=== PATIENT | male | born 1960 | race Caucasian/White ===

== ENCOUNTER → 2016-05-17 | Outpatient (CLI) | payer OTHER ==
[2016-05-17 09:18] LABS: ALT 48 U/L (21-72); AST 20 U/L (17-59); Alkaline Phosphatase 95 U/L (38-126); Anion Gap 11 mmol/L; Blood Urea Nitrogen 16 mg/dL (9-20); Calcium 9.4 mg/dL (8.4-10.2); Carbon Dioxide 25 mmol/L (22-30); Chloride 104 mmol/L (98-107); Cholesterol 101 mg/dL (<200); Glucose 159 mg/dL (74-99); HDL Cholesterol 36 mg/dL (40-60); Non-African American GFR(MDRD) >60 (>60 ml/min/1.73 sqM); Sodium 140 mmol/L (137-145); Total Bilirubin 0.5 mg/dL (0.2-1.3); Total Protein 6.8 g/dL (6.3-8.2); Triglycerides 124 mg/dL (<150)
== END | disposition home or self-care (01) ==
LOC: LABWHC1 07:51
PROVIDERS: ATTEND Internal Medicine Interventional Cardiology
DX: E78.2 Mixed hyperlipidemia (principal)
CPT/HCPCS: 36415; 80053; 80061

== ENCOUNTER 2016-09-08 17:38 | Inpatient (IN) | payer OTHER ==
[2016-09-08] MEDS ORDERED: SODIUM CHLORIDE 0.9% 1,000 ML IV STA (17:50)
--- NOTE | 2016-09-08 18:13 | ED ---
Abdominal Pain HPI - General Chief Complaint: Abdominal Pain Stated Complaint: abd pain Time Seen by Provider: 09/08/16 17:50 Source: patient, RN notes reviewed, old records reviewed Mode of arrival: ambulatory Limitations: no limitations - History of Present Illness Initial Comments: Patient was sent for [facility] emergency Department for chief complaint of lower right quadrant abdominal pain for the past 3 days. He reports that the to the CAT scan showed that he had an infarct over his right kidney. Patient states that he's never had any problems with this before. Denies any decreased urination. Patient denies any chest pain or shortness of breath. He reports that he did have a open-heart surgery one year ago. He reports he's had a decreased appetite over the past few days. He did have dental surgery one week ago. He reports no vomiting but feels nauseated. Denies any changes in bowel movements. - Related Data Home Medications Medication Instructions Recorded Confirmed Aspirin EC [Ecotrin] 325 mg PO HS 09/16/15 09/08/16 Carvedilol [Coreg*] 12.5 mg PO BID 09/08/16 09/08/16 Lisinopril [Prinivil] 5 mg PO QAM 09/08/16 09/08/16 Omeprazole 40 mg PO HS 09/08/16 09/08/16 amLODIPine [Norvasc] 5 mg PO QAM 09/08/16 09/08/16 Previous Rx's Medication Instructions Recorded Atorvastatin [Lipitor] 40 mg PO HS #90 tablet 09/21/15 Allergies Allergy/AdvReac Type Severity Reaction Status Date / Time No Known Allergies Allergy Verified 09/08/16 18:25 Review of Systems ROS Statement: Those systems with pertinent positive or pertinent negative responses have been documented in the HPI. ROS Other: All systems not noted in ROS Statement are negative. Past Medical History Past Medical History: Hypertension, Osteoarthritis (OA), Pneumonia Additional Past Medical History / Comment(s): pneumonia 6 weeks ago, "leaky valve" History of Any Multi-Drug Resistant Organisms: None Reported Past Surgical History: Orthopedic Surgery Additional Past Surgical History / Comment(s): hand surg., stomach biopsy Past Anesthesia/Blood Transfusion Reactions: No Reported Reaction Past Psychological History: No Psychological Hx Reported Smoking Status: Current every day smoker Past Alcohol Use History: Occasional Additional Past Alcohol Use History / Comment(s): has smoked since teens Past Drug Use History: Marijuana Additional Drug Use History / Comment(s): occasional use - Past Family History Mother Family Medical History: Diabetes Mellitus Father Family Medical History: Coronary Artery Disease (CAD) Additional Family Medical History / Comment(s): CABG General Exam - General Exam Comments Initial Comments: 55-year-old male. No acute distress. Limitations: no limitations General appearance: alert, in no apparent distress Head exam: Present: atraumatic, normocephalic, normal inspection Eye exam: Present: normal appearance, PERRL, EOMI. Absent: scleral icterus, conjunctival injection, periorbital swelling ENT exam: Present: normal exam, mucous membranes moist Neck exam: Present: normal inspection. Absent: tenderness, meningismus, lymphadenopathy Respiratory exam: Present: normal lung sounds bilaterally. Absent: respiratory distress, wheezes, rales, rhonchi, stridor Cardiovascular Exam: Present: regular rate, normal rhythm, normal heart sounds. Absent: systolic murmur, diastolic murmur, rubs, gallop, clicks GI/Abdominal exam: Present: soft, tenderness (Right lower quadrant and left lower quadrant tenderness.), normal bowel sounds. Absent: distended, guarding, rebound, rigid Extremities exam: Present: normal inspection, full ROM, normal capillary refill. Absent: tenderness, pedal edema, joint swelling, calf tenderness Back exam: Present: normal inspection Neurological exam: Present: alert, oriented X3, CN II-XII intact Psychiatric exam: Present: normal affect, normal mood Skin exam: Present: warm, dry, intact, normal color. Absent: rash Course Vital Signs 09/08/16 09/08/16 17:43 19:35 Temperature 98.4 F 100.5 F H Pulse Rate 65 62 Respiratory 20 18 Rate Blood Pressure 182/90 173/93 O2 Sat by Pulse 98 99 Oximetry Medical Decision Making - Medical Decision Making This is a 55-year-old male transferred from [facility] emergency Department with chief complaint of a right lower quadrant pain for the past 3 days. Patient received a CT with contrast showed evidence of a wedge-shaped enhancing defect within the right kidney posterolaterally and thought to represent infarct. No definite intrinsic disease as demonstrated within the right renal artery apart for minimal calcific plaque. About source is most likely. Patient was sent here for further workup. Patient denies any chest pain shortness of breath. He reports he does still have the right lower quadrant pain but is occasionally will go to left lower quadrant. Patient does arrive with a mild fever. Lab work was obtained. Mild leukocytosis 14.5. Patient will be started on Unasyn. EKGs were performed shows no evidence of any atrial fibrillation. Patient was admitted with cardiology consult. Patient agrees to this. - Lab Data Result diagrams: 09/08/16 18:04 09/08/16 18:04 Lab Results 09/08/16 09/08/16 09/08/16 Range/Units 18:04 18:04 18:04 WBC 14.6 H (3.8-10.6) k/uL RBC 5.40 (4.30-5.90) m/uL Hgb 17.0 (13.0-17.5) gm/dL Hct 48.2 (39.0-53.0) % MCV 89.3 (80.0-100.0) fL MCH 31.4 (25.0-35.0) pg MCHC 35.2 (31.0-37.0) g/dL RDW 13.4 (11.5-15.5) % Plt Count 192 (150-450) k/uL Neutrophils % 71 % Lymphocytes % 18 % Monocytes % 7 % Eosinophils % 2 % Basophils % 1 % Neutrophils # 10.3 H (1.3-7.7) k/uL Lymphocytes # 2.7 (1.0-4.8) k/uL Monocytes # 1.1 H (0-1.0) k/uL Eosinophils # 0.3 (0-0.7) k/uL Basophils # 0.1 (0-0.2) k/uL Sodium 139 (137-145) mmol/L Potassium 4.1 (3.5-5.1) mmol/L Chloride 100 (98-107) mmol/L Carbon Dioxide 26 (22-30) mmol/L Anion Gap 13 mmol/L BUN 13 (9-20) mg/dL Creatinine 1.10 (0.66-1.25) mg/dL Est GFR (MDRD) Af Amer >60 (>60 ml/min/1.73 sqM) Est GFR (MDRD) Non-Af >60 (>60 ml/min/1.73 sqM) Glucose 101 H (74-99) mg/dL Calcium 9.2 (8.4-10.2) mg/dL Total Bilirubin 1.2 (0.2-1.3) mg/dL AST 32 (17-59) U/L ALT 38 (21-72) U/L Alkaline Phosphatase 100 (38-126) U/L Total Creatine Kinase (55-170) U/L CK-MB (CK-2) (0.0-2.4) ng/mL CK-MB (CK-2) Rel Index Troponin I (0.000-0.034) ng/mL Total Protein 7.4 (6.3-8.2) g/dL Albumin 4.1 (3.5-5.0) g/dL Amylase 58 (30-110) U/L Lipase 66 (23-300) U/L Urine Color Yellow Urine Appearance Clear (Clear) Urine pH 7.0 (5.0-8.0) Ur Specific [place] 1.050 H (1.001-1.035) Urine Protein 1+ H (Negative) Urine Glucose (UA) Negative (Negative) Urine Ketones Negative (Negative) Urine Blood Negative (Negative) Urine Nitrite Negative (Negative) Urine Bilirubin Negative (Negative) Urine Urobilinogen 3.0 (<2.0) mg/dL Ur Leukocyte Esterase Negative (Negative) Urine RBC 1 (0-5) /hpf 09/08/16 Range/Units 18:04 WBC (3.8-10.6) k/uL RBC (4.30-5.90) m/uL Hgb (13.0-17.5) gm/dL Hct (39.0-53.0) % MCV (80.0-100.0) fL MCH (25.0-35.0) pg MCHC (31.0-37.0) g/dL RDW (11.5-15.5) % Plt Count (150-450) k/uL Neutrophils % % Lymphocytes % % Monocytes % % Eosinophils % % Basophils % % Neutrophils # (1.3-7.7) k/uL Lymphocytes # (1.0-4.8) k/uL Monocytes # (0-1.0) k/uL Eosinophils # (0-0.7) k/uL Basophils # (0-0.2) k/uL Sodium (137-145) mmol/L Potassium (3.5-5.1) mmol/L Chloride (98-107) mmol/L Carbon Dioxide (22-30) mmol/L Anion Gap mmol/L BUN (9-20) mg/dL Creatinine (0.66-1.25) mg/dL Est GFR (MDRD) Af Amer (>60 ml/min/1.73 sqM) Est GFR (MDRD) Non-Af (>60 ml/min/1.73 sqM) Glucose (74-99) mg/dL Calcium (8.4-10.2) mg/dL Total Bilirubin (0.2-1.3) mg/dL AST (17-59) U/L ALT (21-72) U/L Alkaline Phosphatase (38-126) U/L Total Creatine Kinase 45 L (55-170) U/L CK-MB (CK-2) 0.2 (0.0-2.4) ng/mL CK-MB (CK-2) Rel Index 0.4 Troponin I 0.015 (0.000-0.034) ng/mL Total Protein (6.3-8.2) g/dL Albumin (3.5-5.0) g/dL Amylase (30-110) U/L Lipase (23-300) U/L Urine Color Urine Appearance (Clear) Urine pH (5.0-8.0) Ur Specific [place] (1.001-1.035) Urine Protein (Negative) Urine Glucose (UA) (Negative) Urine Ketones (Negative) Urine Blood (Negative) Urine Nitrite (Negative) Urine Bilirubin (Negative) Urine Urobilinogen (<2.0) mg/dL Ur Leukocyte Esterase (Negative) Urine RBC (0-5) /hpf 09/08/16 18:51 EKG shows a sinus rhythm. Possible left arterial enlargement. Abnormality considering lateral ischemia. Ventricular rate 61 beats minute. IA 150 form of sinus. Dressing 108 ms. QT QTc is 416/418. Atrial or ventricular arrhythmias. - Radiology Data Radiology results: report reviewed Patient's CT shows wedge-shaped enhancing defect within the right kidney posterior laterally thought to represent infarct, no definite intrinsic disease demonstrated within the right renal artery part from minimal calcific plaque. Embolic source is most likely. A cardiac source of embolization would have to be excluded and cardiology consult is suggested. Less likely abnormality may represent a focal infection and clinical correlation with respect to UTIs recommended. Bilateral external iliac artery occlusions with reconstruction of the common form arteries through the epigastrium started once iliac. Prostatic enlargement with central constipation, small bilateral inguinal hernias, the appendix appears normal. Disposition Clinical Impression: Renal infarct, Leukocytosis, CAD (coronary artery disease), Hyperlipemia, HTN ( hypertension) Disposition: ADMITTED IP TO THIS HOSP Condition: Stable Time of Disposition: 19:33
[2016-09-08 18:14] LABS: Basophils # (A) 0.1 k/uL (0-0.2); Basophils % (A) 1 %; CH 32.1; CHCM 36.1; Eosinophils # (A) 0.3 k/uL (0-0.7); Eosinophils % (A) 2 %; HCT 48.2 % (39.0-53.0); HDW 2.62; Luc # (Auto) 0.21; Luc % (Auto) 1; Lymphocytes # (A) 2.7 k/uL (1.0-4.8); Lymphocytes % (A) 18 %; MCH 31.4 pg (25.0-35.0); MCHC 35.2 g/dL (31.0-37.0); MCV 89.3 fL (80.0-100.0); Mean Platelet Volume 7.2; Monocytes # (A) 1.1 k/uL (0-1.0); Monocytes % (A) 7 %; Neutrophils # (A) 10.3 k/uL (1.3-7.7); Neutrophils % (A) 71 %; RDW 13.4 % (11.5-15.5); WBC 14.6 k/uL (3.8-10.6); WBC (Perox) 14.21
[2016-09-08 18:36] LABS: ALT 38 U/L (21-72); AST 32 U/L (17-59); Alkaline Phosphatase 100 U/L (38-126); Amylase 58 U/L (30-110); Anion Gap 13 mmol/L; Blood Urea Nitrogen 13 mg/dL (9-20); Calcium 9.2 mg/dL (8.4-10.2); Carbon Dioxide 26 mmol/L (22-30); Chloride 100 mmol/L (98-107); Glucose 101 mg/dL (74-99); Non-African American GFR(MDRD) >60 (>60 ml/min/1.73 sqM); Potassium 4.1 mmol/L (3.5-5.1); Sodium 139 mmol/L (137-145); Total Bilirubin 1.2 mg/dL (0.2-1.3); Total Protein 7.4 g/dL (6.3-8.2)
[2016-09-08 18:38] LABS: Appearance,Urine Clear (Clear); Bilirubin,Urine Negative (Negative); Glucose,Urine (UA) Negative (Negative); Ketones,Urine Negative (Negative); Leukocyte Esterase,Urine Negative (Negative); Nitrite,Urine Negative (Negative); Particle Count 798; Protein,Urine 1+ (Negative); RBC,Urine 1 /hpf (0-5); UA Billing (MACRO vs. MICRO) MICRO
[2016-09-08 18:49] LABS: Creatine Kinase MB 0.2 ng/mL (0.0-2.4); Troponin I 0.015 ng/mL (0.000-0.034)
[2016-09-08] MEDS ORDERED: MORPHINE SULFATE 4 MG/ML SYRINGE IV PRN (19:33)
[2016-09-08] MEDS ORDERED: ACETAMINOPHEN TAB 325 MG TAB PO PRN (19:33)
[2016-09-08] MEDS ORDERED: HYDROcodone/APAP 5-325MG 1 EACH TAB PO PRN (19:33)
[2016-09-08] MEDS ORDERED: NALOXONE 0.4 MG/ML 1 ML VIAL IV PRN (19:33)
[2016-09-08] MEDS ORDERED: ONDANSETRON 4 MG/2 ML VIAL IVP PRN (19:33)
[2016-09-08] MEDS ORDERED: ACETAMINOPHEN TAB 500 MG TAB PO STA (19:42)
[2016-09-08] MEDS ORDERED: AMPICILLIN-SULBACTAM 3 GM in SODIUM CHLORIDE 0.9% 100 ML IVPB STA (19:43)
[2016-09-08] MEDS ORDERED: AMPICILLIN-SULBACTAM 3 GM in SODIUM CHLORIDE 0.9% 50 ML IVPB SCH (19:45)
[2016-09-08] MEDS: SODIUM CHLORIDE 0.9% 1,000 ML IV SCH (20:56)
[2016-09-08 22:55] VITALS: BMI 34.9
[2016-09-08] MEDS: ASPIRIN 325 MG TAB PO SCH (23:57)
[2016-09-08] MEDS: ATORVASTATIN 40 MG TAB PO SCH (23:58)
[2016-09-08] MEDS: PANTOPRAZOLE 40 MG TABLET PO SCH (23:58)
[2016-09-08] MEDS: CARVEDILOL 12.5 MG TAB PO SCH (23:58)
[2016-09-09] MEDS: AMPICILLIN-SULBACTAM 3 GM in SODIUM CHLORIDE 0.9% 100 ML IVPB SCH ×4 (02:32→20:43)
[2016-09-09] MEDS: SODIUM CHLORIDE 0.9% 1,000 ML IV SCH ×3 (02:35→21:48)
[2016-09-09] MEDS: CARVEDILOL 12.5 MG TAB PO SCH ×2 (08:50→20:43)
[2016-09-09] MEDS: LISINOPRIL 5 MG TAB PO SCH (08:50)
[2016-09-09] MEDS: amLODIPine 5 MG TAB PO SCH (12:11)
--- NOTE | 2016-09-09 12:15 | CONS ---
DATE OF CONSULTATION: Mr. Dyson is a 55-year-old gentleman who is seen for cardiac evaluation. This patient's previous medical records reviewed. Patient went to [facility] Emergency Department because of complaint of the right lower quadrant abdominal pain which has been going on for 3 days. The pain is kind of persistent. He did not have any significant nausea or vomiting. He denied any fever or chills at home, but the patient did have some fever last night. Patient denies any hematuria. Patient had a CT of the abdomen and pelvis done at [facility] which showed a possible infarct of the right kidney. Patient denies any past history of atrial fibrillation. He has a history of coronary artery bypass surgery at one year ago. Patient had a significantly impaired left ventricular systolic function at that time for cardiac catheterization, however, subsequently after the open heart surgery the left ventricular systolic function has almost normalized and has been doing fairly well. He denies any exertional shortness of breath, orthopnea, PND, or denies any history of angina. Patient denies any history of valvular heart disease. Home medications include aspirin, Coreg, Prinivil, omeprazole and Norvasc. Review of systems is otherwise unremarkable. Past medical history includes history of orthopedic surgery, history of hand surgery. Patient also had upper GI endoscopy and had a biopsy of the stomach done, the details of which are not available. He was treated for pneumonia about 6 weeks ago. SOCIAL HISTORY: Patient is currently every day smoker and there is a past drug history of marijuana use. Physical examination at present reveals a 55-year-old gentleman who does not appear to be in any acute distress. Patient had a temperature of 100.5. Initial blood pressure in the emergency room was 173/93 mmHg. Blood pressure now is 129/68 mmHg. Head/ENT examination is negative. Neck is supple. There is no increase in jugular venous pressure. Both the carotid pulses are felt. There is no bruit. Chest is symmetrical. HEART: The PMI is not felt. First and second heart sounds are normal. There is no evidence of any significant murmur. Lungs are clinically clear to auscultation and percussion. Abdomen is soft. There is a right lower quadrant tenderness present. Bowel sounds are normal. EXTREMITIES: Peripheral pulsations are 2+. Patient's white count was 11.8 yesterday and it is 4.6 today. Electrolytes are normal. Patient's troponin was 0.015. Urinalysis is negative for any blood in the urine. Patient's echocardiogram reviewed. It reveals overall normal left ventricular systolic function with a small area of basal inferior septal and basal inferior wall hypokinesia. The CT scan at [facility] reveals right kidney infarct. FINAL ( ): 1. This patient has evidence of right kidney infarct, exact etiology undetermined. Patient is status post coronary artery bypass surgery. At present patient's left ventricular systolic function is normal. There is only small area of inferobasal hypokinesia. There is no definite evidence of any thrombus at the left ventricular apex. 2. Patient does have a low grade fever and elevated white count, which needs to be further evaluated. We will order the blood cultures. Discussed this patient's condition with Dr. Nuñez. We will have a surgical consultation to rule out any other causes of abdominal pain. I am not sure whether this kidney infarct is recent or old one. Patient would be evaluated with troponin to rule out any cardiac source of emboli. Thank you very much for letting me participate in the care of this nice gentleman.
[2016-09-09] MEDS ORDERED: ALPRAZolam 0.25 MG TAB PO PRN (15:07)
[2016-09-09] MEDS ORDERED: TEMAZEPAM 15 MG CAP PO PRN (15:07)
--- NOTE | 2016-09-09 15:43 | ECHOF ---
Referral Reason:lv function MEASUREMENTS -------- HEIGHT: 175.3 cm WEIGHT: 107.1 kg BP: 128/68 RVIDd: 3.3 cm (< 3.3) IVSd: 1.5 cm (0.6 - 1.1) LVIDd: 5.1 cm (3.9 - 5.3) LVPWd: 1.5 cm (0.6 - 1.1) IVSs: 1.6 cm LVIDs: 3.6 cm LVPWs: 2.0 cm LA Diam: 4.0 cm (2.7 - 3.8) LAESV Index (A-L): 45.82 ml/m Ao Diam: 3.3 cm (2.0 - 3.7) AV Cusp: 2.3 cm (1.5 - 2.6) MV EXCURSION: 21.866 mm (> 18.000) MV EF SLOPE: 79 mm/s (70 - 150) EPSS: 1.2 cm MV E Joel: 0.93 m/s MV DecT: 180 ms MV A Joel: 0.49 m/s MV E/A Ratio: 1.92 RAP: 5.00 mmHg RVSP: 40.32 mmHg FINDINGS -------- Sinus rhythm. This was a technically difficult study with suboptimal views. The left ventricular size is normal. There is moderate concentric left ventricular hypertrophy. Overall left ventricular systolic function is low-normal with, an EF between 50 - 55 %. Basal inferior LV wall motion is hypokinetic. Basal inferoseptal LV wall motion is hypokinetic. The right ventricle is mildly enlarged. LA is severely dilated >40 ml/m2 The right atrium is normal in size. 1.5mg of Definity was utilized for enhancement of images There is mild aortic valve sclerosis. Mild mitral annular calcification present. There is trace mitral regurgitation. Mild tricuspid regurgitation present. There is mild pulmonary hypertension. The right ventricular systolic pressure, as measured by Doppler, is 40.32mmHg. Trace/mild (physiologic) pulmonic regurgitation. The aortic root size is normal. The inferior vena cava is mildly dilated. The pericardium is normal. CONCLUSIONS -------- 1. Sinus rhythm. 2. 1.5mg of Definity was utilized for enhancement of images 3. There is mild aortic valve sclerosis. 4. Mild mitral annular calcification present. 5. There is trace mitral regurgitation. 6. Mild tricuspid regurgitation present. 7. There is mild pulmonary hypertension. 8. The right ventricular systolic pressure, as measured by Doppler, is 40.32mmHg. 9. Trace/mild (physiologic) pulmonic regurgitation. 10. The aortic root size is normal. 11. The inferior vena cava is mildly dilated. 12. This was a technically difficult study with suboptimal views. 13. The pericardium is normal. 14. The left ventricular size is normal. 15. There is moderate concentric left ventricular hypertrophy. 16. Overall left ventricular systolic function is low-normal with, an EF between 50 - 55 %. 17. Basal inferior LV wall motion is hypokinetic. 18. Basal inferoseptal LV wall motion is hypokinetic. 19. The right ventricle is mildly enlarged. 20. LA is severely dilated >40 ml/m2 ALLERGIST/MD: Mana Coughlin RDCS
--- NOTE | 2016-09-09 17:01 | HP ---
DATE OF ADMISSION: 09/08/2016 CHIEF COMPLAINT: Abdominal pain. HISTORY OF PRESENT ILLNESS: This 55-year-old gentleman with a past medical history of multiple medical problems, including CAD, CABG in 2016, history of hypertension, history of DJD, history of pneumonia, history of leaky valve, history of nicotine dependence, is being followed by Dr. Sebastian Naidu in the outpatient setting. He apparently presented to [facility] with abdominal pain. The patient was noted to have a renal infarct on the right side, and the patient was subsequently transferred to [facility] for further evaluation and treatment. There is no history of any fever, rigor or chills, no history of headache. Patient had a diminished appetite. Otherwise, no history of diarrhea. No history of any hematuria. No hematochezia, melena. Of note, the patient did have multiple dental extractions a few weeks ago. Patient also had EGD and colonoscopy, and a polypectomy was also done about [address] Salvador in [facility]. There is no history of any fever, rigor or chills, no history of headache, loss of consciousness, seizures. PAST MEDICAL HISTORY: 1. Hypertension. 2. DJD. 3. History of pneumonia 6 weeks ago. 4. History of THC. HOME MEDICATIONS: 1. Prinivil 5 mg each morning. 2. Norvasc 5 mg each morning. 3. Omeprazole 40 mg at bedtime. 4. Coreg 12.5 mg b.i.d. 5. Lipitor 40 mg at bedtime. 6. Ecotrin 81 mg at bedtime. ALLERGIES: NONE. FAMILY HISTORY: History of diabetes mellitus, CAD, CABG in the family. SOCIAL HISTORY: History of smoking. No history of alcohol intake. REVIEW OF SYSTEMS: ENT: No diminishing hearing. No diminished vision. CARDIOVASCULAR: No angina, palpitations. RESPIRATORY SYSTEM: As mentioned earlier. GI: No nausea or vomiting : No dysuria. NERVOUS SYSTEM: No numbness, weakness. ALLERGY/IMMUNOLOGY: No asthma, hayfever. MUSCULOSKELETAL: As mentioned earlier. HEMATOLOGY/ONCOLOGY: No history of anemia. ENDOCRINE: As mentioned earlier. CONSTITUTIONAL: As mentioned earlier. DERMATOLOGY: Negative. RHEUMATOLOGY: Negative. PSYCHIATRY: As mentioned earlier. PHYSICAL EXAMINATION: Patient is alert and oriented x3. Pulse is 58, blood pressure 120/74, respiration 18, temperature 100.2, pulse ox 96% on room air. HEENT: Conjunctivae normal. NECK: No jugular venous distention. CARDIOVASCULAR SYSTEM: S1, S2 muffled. RESPIRATORY SYSTEM: Breath sounds diminished at the bases. A few rhonchi. No crackles. ABDOMEN: Soft. Mild diffuse discomfort on the right lower quadrant. No guarding. No rigidity. No mass palpable. LEGS: No edema. No swelling. NERVOUS SYSTEM: Higher functions as mentioned earlier. Moves all 4 limbs. No focal motor or sensory deficit. LYMPHATICS: No lymph node palpable in neck, axillae or groin. SKIN: No ulcer, rash, bleeding. LABS: WBC 14.6, hemoglobin 17. ASSESSMENT: 1. Abdominal pain and fever for evaluation. 2. Possible right renal infarct. 3. Increased white count. 4. History of recent coronary artery disease, coronary artery bypass grafting. 5. Hypertension, essential. 6. History of degenerative joint disease. 7. History of pneumonia. 8. History of recent dental extractions. 9. History of esophagogastroduodenoscopy, colonoscopy with polypectomy. 10. History of nicotine dependence. 11. History of tetrahydrocannabinol. 12. History of coronary artery disease. 13. FULL CODE. RECOMMENDATIONS AND DISCUSSION: In this 55-year-old gentleman who presented with multiple complex medical issues, we will monitor the patient closely, continue the current medication, continue with symptomatic treatment. Otherwise, patient has been started on empiric antibiotics at this time. I would recommend infectious disease evaluation as well as surgical evaluation. Cardiology also has seen the patient. TEA is a consideration. See orders for further details. Prognosis is guarded. Further recommendations to follow. Blood cultures will be obtained. Home medications will be continued. Discussed with the patient and family, who understand and agree. A copy of this dictation is being forwarded to Dr. Sebastian Naidu, who is the primary physician. DESTINI
[2016-09-09] MEDS: NICOTINE 14MG/24HR PATCH TRANSDERM SCH (18:39)
[2016-09-09] MEDS: ATORVASTATIN 40 MG TAB PO SCH (20:43)
[2016-09-09] MEDS: PANTOPRAZOLE 40 MG TABLET PO SCH (21:48)
[2016-09-09] MEDS: ASPIRIN 325 MG TAB PO SCH (21:48)
--- NOTE | 2016-09-09 22:13 | P.PN ---
Progress Note - Text Patient seen and evaluated. Patient know to me from recent upper and lower endoscopy at [place] on 08/08/16. I reviewed results of this scopes consistent with multiple tubular adenomas and Cooper's esophagus. He is complaining of right lower quadrant pain since yesterday. Currently his is undergoing cardiology work-up for renal infarct. Agree with cardiology work-up. Will upload CT from [place] for further review and will follow.
--- NOTE | 2016-09-09 22:39 | CONS ---
DATE OF CONSULTATION: 09/09/2016 REASON FOR CONSULTATION: Renal infarct, fever and question of infection. HISTORY OF PRESENT ILLNESS: The patient is a 55-year-old male who started having abdominal pain in the right lower abdominal area for about 2 to 3 days. The patient denies any history of any trauma. Pain described to be dull aching pain, 5 to 6 out of 10 and no radiation. The patient did have some nausea, but no vomiting. He denies any significant voiding or frequency of urine. No hematuria. Denies having any diarrhea or constipation . The patient did present to [facility], where the patient was evaluated by the ER physician. He did have slightly evaluated white count and a CT of the abdomen and pelvis did show evidence of right renal infarct for which the patient has been transferred to [facility] for further evaluation. Patient has been evaluated by Cardiology and in view of the fevers and elevated white count requested for the ID evaluation. The patient did mention that he did have a fever of 100.2 yesterday. The fever today on the floor of 100.3. REVIEW OF SYSTEMS: CONSTITUTIONAL: Positive for weakness and fever. EYES: No complaint. ENT: No complaint. RESPIRATORY: No complaint. CARDIOVASCULAR: No complaint. PULMONARY: Clear anteriorly, no complaint. GASTROINTESTINAL: As per HPI. MUSCULOSKELETAL: No complaint. INEGUMENTARY: No complaint. PSYCHOLOGIC: No complaint. ENDOCRINE: No complaint. NEUROLOGIC: No complaint. Past medical history is significant for hypertension, degenerative joint disease, pneumonia, coronary artery disease. PAST SURGICAL HISTORY: Hand surgery. SOCIAL HISTORY: The patient is a current every day smoker. Occasional marijuana use and occasionally drinks. FAMILY HISTORY: Mother had history of diabetes. Father with history coronary artery disease. ALLERGIES: No known drug allergies. MEDICATIONS: Currently include the patient is on: 1. Tylenol. 2. [place]. 3. Xanax. 4. Norvasc. 5. Unasyn 3 g every 6 hours. 6. Aspirin. 7. Lipitor. 8. Coreg. 9. Zestril. 10. Morphine sulfate. 11. Narcan. 12. Nicotine patch. 13. Zofran. 14. Protonix. 15. Restoril. On examination, blood pressure is 129/68 with a pulse of 50, temperature 98.4. He is 96% on room air. General description is a middle-aged male lying in bed in no distress. No tachypnea or accessory muscle of respiration use. HEENT: No pallor or scleral icterus. Oral mucosa dry. NECK: Trachea central. There is no thyromegaly. LUNGS: Unlabored breathing. Clear to auscultation anteriorly. HEART: S1, S2. Regular rate and rhythm. ABDOMEN: Soft. No tenderness. Mild CVA tenderness. No guarding, rigidity. No organomegaly. EXTREMITIES: No edema of feet. SKIN: No rash or mass palpable. NEUROLOGICAL: The patient is awake, alert, oriented x3. Mood and affect normal. LABS: Hemoglobin is 17, white count of 14.6. BUN of 13, creatinine 1.1. Electrolytes have been normal. CK was 45. UA itself is negative. CT from [place] with evidence of right renal infarct. DIAGNOSTIC IMPRESSION AND PLAN: The patient with right-sided abdominal pain in a patient with no hematuria. Did have a low-grade fever, elevated white count with the CT at [place] suspicious for a infarct of the right kidney with no mention of any abscess formation . Patient's appendix was reported to be negative. Patient does have a low-grade fever, elevated white count, which could be related to adrenal infarct and not suggestive of any infectious etiology, though cannot be really excluded. Patient did have his teeth removed about 2 weeks ago. If the blood cultures come back positive, an echocardiogram or TEA may be needed for further workup. PLAN: 1. Blood culture has been repeated x2. 2. Continue the patient's antibiotic Unasyn while waiting for the culture to finalize. 3. Obtain ultrasound of his kidneys. 4. Will follow up on the clinical condition and cultures, further adjust the medication as needed. Thank you for this consultation. I will follow this patient along with you. DESTINI
[2016-09-10] MEDS: AMPICILLIN-SULBACTAM 3 GM in SODIUM CHLORIDE 0.9% 100 ML IVPB SCH ×4 (03:01→21:24)
[2016-09-10 07:18] LABS: Basophils % (A) 0 %; CH 32.2; CHCM 35.4; Eosinophils # (A) 0.3 k/uL (0-0.7); Eosinophils % (A) 3 %; HCT 39.9 % (39.0-53.0); HDW 2.71; HGB 14.1 gm/dL (13.0-17.5); Luc % (Auto) 2; Lymphocytes % (A) 23 %; MCH 32.4 pg (25.0-35.0); MCHC 35.5 g/dL (31.0-37.0); MCV 91.3 fL (80.0-100.0); Mean Platelet Volume 7.6; Monocytes # (A) 0.7 k/uL (0-1.0); Monocytes % (A) 8 %; Neutrophils # (A) 5.5 k/uL (1.3-7.7); Neutrophils % (A) 64 %; RBC 4.36 m/uL (4.30-5.90); RDW 13.4 % (11.5-15.5); WBC 8.6 k/uL (3.8-10.6); WBC (Perox) 8.44
[2016-09-10 07:46] LABS: Anion Gap 9 mmol/L; Blood Urea Nitrogen 11 mg/dL (9-20); Calcium 8.2 mg/dL (8.4-10.2); Carbon Dioxide 24 mmol/L (22-30); Chloride 106 mmol/L (98-107); Glucose 110 mg/dL (74-99); Non-African American GFR(MDRD) >60 (>60 ml/min/1.73 sqM); Potassium 4.2 mmol/L (3.5-5.1); Sodium 139 mmol/L (137-145)
[2016-09-10] MEDS ORDERED: MIDAZOLAM 2 MG/2 ML VIAL ONE (08:13)
[2016-09-10] MEDS ORDERED: fentaNYL (PF) 50 MCG/ML 2 ML AMP ONE (08:13)
[2016-09-10] MEDS ORDERED: IV FLUID CONTINUATION 200 ML IV ONE (08:19)
[2016-09-10] MEDS ORDERED: BENZOCAINE SPRAY 100 APPLIC/CAN MUCOUS MEM ONE (08:26)
[2016-09-10] MEDS ORDERED: MIDAZOLAM 2 MG/2 ML VIAL IV ONE ×3 (08:38→08:43)
[2016-09-10] MEDS ORDERED: fentaNYL (PF) 50 MCG/ML 2 ML AMP IV ONE (08:38)
--- NOTE | 2016-09-10 08:41 | US ---
EXAMINATION TYPE: US abd limited kidneys/bladder DATE OF EXAM: 09/10/2016 COMPARISON: NONE CLINICAL HISTORY: abd pain , ? renal infarct vs abscess. RLQ pain x 5 days, nausea, right renal infar ct visualized on CT ABD done at [facility] 09/08/16 EXAM MEASUREMENTS: Liver Length: 18.3 cm Gallbladder Wall: 0.7 cm CBD: 0.3 cm Right Kidney: 11.2 x 6.7 x 5.7 cm Left Kidney: 11.9 x 6.5 x 5.2 cm Pancreas: obscured by overlying bowel content Liver: enlarged, heterogeneous in appearance Gallbladder: thickened GB wall, negative Crump's sign CBD: appears wnl Right Kidney: appears heterogeneous anterior mid, right renal vein and right renal artery appear pat ent Left Kidney: no evidence of hydronephrosis or mass Bladder: appears wnl Bilateral Jets Seen yes Grayscale, color Doppler imaging performed of the right renal vein. Kidneys show normal cortical medu llary differentiation. Urinary bladder shows bilateral ureteral jets. IMPRESSION: Suspect a thickened gallbladder wall, correlate clinically to exclude cholecystitis.
[2016-09-10] MEDS ORDERED: SODIUM CHLORIDE 0.9% 500 ML IV ONE (08:53)
[2016-09-10] MEDS: SODIUM CHLORIDE 0.9% 1,000 ML IV SCH ×2 (10:11→14:42)
[2016-09-10] MEDS: LISINOPRIL 5 MG TAB PO SCH (10:31)
[2016-09-10] MEDS: CARVEDILOL 12.5 MG TAB PO SCH ×2 (10:32→21:23)
[2016-09-10] MEDS: NICOTINE 14MG/24HR PATCH TRANSDERM SCH (10:32)
[2016-09-10] MEDS: amLODIPine 5 MG TAB PO SCH (10:32)
--- NOTE | 2016-09-10 10:32 | ECHOT ---
DATE OF SERVICE: INDICATIONS: Evaluation of intracardiac thrombus. PROCEDURE: After explaining the procedure to the patient as well as the risks and complications, his blood pressure, heart rate, O2 saturation was monitored. The throat was sprayed with Cetacaine. He received 3 mg of intravenous Versed and 50 mcg intravenous fentanyl. After obtaining moderate conscious sedated state, the probe was introduced into the esophagus without difficulty. Images were obtained. Following that, the probe was removed. There was no immediate complication. FINDINGS: Left atrial size is dilated. Left atrial appendage os normal. Left ventricle size is normal. There is mild inferior wall hypokinesis, estimated ejection fraction 50%. The aortic valve, mitral valve and tricuspid valve appear to be normal. Descending thoracic aorta revealed no evidence of significant atherosclerotic changes. Contrast bubble study revealed no evidence of shunting across the interatrial septum with Valsalva maneuver. No pericardial effusion was noted. Doppler pulse wave and color Doppler obtained revealed mild to moderate mitral with mild tricuspid regurgitation and there was no shunting by color Doppler study. CONCLUSION: 1. Mild dilated left atrium. 2. Normal left ventricular size with mild impaired left ventricular systolic function. 3. Mild to moderate mitral with mild tricuspid regurgitation. 4. No evidence of intracardiac thrombus. 5. No evidence of shunting across the interatrial septum. 6. No pericardial effusion.
--- NOTE | 2016-09-10 13:42 | P.GSCN ---
History of Present Illness Consult date: 09/09/16 Reason for Consult: Abdominal pain Requesting physician: Chaitanya Sun History of present illness: The patient is a 55-year-old gentleman well-known to me who had an upper endoscopy including lower endoscopy in 08/08/2016 [facility]. Incidentally he reports in the last 24-48 hours he had developed right sided particular right lower abdominal pain. He went to [place] emergency room where a CT of the abdomen and pelvis demonstrated a right renal infarct. He denies any genitourinary symptoms. Separately he reports that his pain had mildly improved since admission of the right lower abdomen. Secondary to his diagnosis of renal infarct, cardiology assessment is pending at this time. He had yet to follow-up in the office regarding his recent upper and lower endoscopy studies. His daughter is at bedside. Review of Systems CONSTITUTIONAL: Denies any fever or chills. Denies recent weight loss or weight gain. HEENT: Denies any trouble with vision, hearing or nosebleeds. No difficulty swallowing. LYMPHATIC: The patient denies any lumps and bumps around the neck. ENDOCRINE: Denies any thyroid disorders. Denies any blood sugar glucose intolerance. RESPIRATORY: Past history of pneumonia. Denies any troubles with breathing or dyspnea on exertion. CARDIOVASCULAR: Has hypertension including history of heart murmur. GASTROINTESTINAL: Has Cooper's esophagus. Has multiple colon polyps and diverticulosis upon recent upper endoscopy and lower endoscopy . Denies any fatty food intolerance. GENITOURINARY: Denies any blood in urine or increased urinary frequency. MUSCULOSKELETAL: Has back pain, stiffness, joint arthritis. NEUROLOGIC: Denies any numbness or tingling along the distal extremities. No seizure disorders or headaches. PSYCHIATRIC: Denies depression or suidical ideation. HEMATOLOGIC: Denies any abnormal bleeding or bruising. Past Medical History Past Medical History: Hypertension, Osteoarthritis (OA), Pneumonia Additional Past Medical History / Comment(s): pneumonia 6 weeks ago, "leaky valve" History of Any Multi-Drug Resistant Organisms: None Reported Past Surgical History: Orthopedic Surgery Additional Past Surgical History / Comment(s): hand surg., stomach biopsy Past Anesthesia/Blood Transfusion Reactions: No Reported Reaction Past Psychological History: No Psychological Hx Reported Smoking Status: Current every day smoker Past Alcohol Use History: Occasional Additional Past Alcohol Use History / Comment(s): has smoked since teens Past Drug Use History: Marijuana Additional Drug Use History / Comment(s): occasional use - Past Family History Mother Family Medical History: Diabetes Mellitus Father Family Medical History: Coronary Artery Disease (CAD) Additional Family Medical History / Comment(s): CABG Medications and Allergies Home Medications Medication Instructions Recorded Confirmed Type Aspirin EC [Ecotrin] 325 mg PO HS 09/16/15 09/08/16 History Carvedilol [Coreg*] 12.5 mg PO BID 09/08/16 09/08/16 History Lisinopril [Prinivil] 5 mg PO QAM 09/08/16 09/08/16 History Omeprazole 40 mg PO HS 09/08/16 09/08/16 History amLODIPine [Norvasc] 5 mg PO QAM 09/08/16 09/08/16 History Allergies Allergy/AdvReac Type Severity Reaction Status Date / Time No Known Allergies Allergy Verified 09/08/16 18:25 Surgical - Exam Vital Signs Temp Pulse Resp BP Pulse Ox 98.4 F 65 20 182/90 98 09/08/16 17:43 09/08/16 17:43 09/08/16 17:43 09/08/16 17:43 09/08/16 17:43 GENERAL: Well developed and in no acute distress. Pleasant. HEENT: No sclera icterus. Extraocular movements grossly intact. Moist buccal mucosa. Head is atraumatic, normocephalic. Hears conversational speech. No nasal drainage. NECK: Supple without lymphadenopathy. CHEST: Non-labored respirations and equal bilateral excursions. CARDIOVASCULAR: Regular rate and rhythm. Palpable 2+ radial pulses. ABDOMEN: Soft. Nondistended. Focal tenderness along the right groin. MUSCULOSKELETAL: No clubbing, cyanosis or edema. NEUROLOGIC: No focal or lateralizing signs. PSYCH: Appropriate affect. Alert and oriented to person, place and time. Results - Labs 09/10/16 06:59 09/10/16 06:59 Assessment and Plan (1) Hypertensive heart disease with CHF (congestive heart failure) Status: Acute (2) CAD (coronary artery disease) Status: Acute (3) HTN (hypertension) Status: Acute (4) Leukocytosis Status: Acute (5) COPD (chronic obstructive pulmonary disease) Status: Acute (6) Cooper esophagus Status: Acute (7) Tubular adenoma of colon Status: Acute (8) Diverticula of colon Status: Acute (9) Right lower quadrant abdominal pain Status: Acute Plan: 1. I reviewed results of this scopes consistent with multiple tubular adenomas and Cooper's esophagus. 2. Agree with cardiology work-up. 3. Will upload CT from [place] for further review and will follow.
--- NOTE | 2016-09-10 13:47 | P.PN ---
Subjective Principal diagnosis: Right lower abdominal pain Patient is a 55-year-old gentleman well-known to me who presents with right renal infarct. He has completed multiple diagnostic studies including ultrasound of the abdomen. He reports his right groin pain had improved since admission. Separately now he complains of occasional epigastric abdominal pain with radiation of the bilateral upper quadrant. He is tolerating diet. No reports of fevers or chills. His leukocytosis has improved since admission as well as placement of antibiotics. Objective - Vital Signs Vital signs: Vital Signs Temp 98.1 F 09/10/16 03:04 Pulse 58 L 09/10/16 08:55 Resp 12 09/10/16 08:55 BP 144/75 09/10/16 08:55 Pulse Ox 97 09/10/16 08:55 Intake & Output 09/09/16 09/10/16 09/10/16 18:59 06:59 18:59 Intake Total 1660 960 100 Balance 1660 960 100 Weight 107.5 kg Intake: IV 100 Intake, IV Titration 1060 960 Amount Ampicillin-Sulbactam 3 gm 100 In Sodium Chloride 0.9% 100 ml @ 100 mls/hr IVPB Q6H DEVEN Rx#:[id number] Sodium Chloride 0.9% 1, 960 960 000 ml @ 120 mls/hr IV . Q8H20M DEVEN Rx#:[id number] Oral 600 Other: Voiding Method Toilet Toilet Toilet Urinal # Voids 3 1 1 # Bowel Movements 2 - Exam GENERAL: Well developed and in no acute distress. Pleasant. HEENT: No sclera icterus. Extraocular movements grossly intact. Moist buccal mucosa. Head is atraumatic, normocephalic. Hears conversational speech. No nasal drainage. Wears glasses. NECK: Supple without lymphadenopathy. CHEST: Non-labored respirations and equal bilateral excursions. CARDIOVASCULAR: Regular rate and rhythm. Palpable 2+ radial pulses. ABDOMEN: Soft. Mild distention. Focal pinpoint tenderness along the right groin. MUSCULOSKELETAL: No clubbing, cyanosis or edema. NEUROLOGIC: No focal or lateralizing signs. PSYCH: Appropriate affect. Alert and oriented to person, place and time. - Labs CBC & Chem 7: 09/10/16 06:59 09/10/16 06:59 Labs: Abnormal Lab Results - Last 24 Hours (Table) 09/10/16 09/10/16 Range/Units 06:59 06:59 Glucose 110 H (74-99) mg/dL Calcium 8.2 L (8.4-10.2) mg/dL C-Reactive Protein 68.6 H (<10.0) mg/L Microbiology - Last 24 Hours (Table) 09/09/16 21:05 Urine Culture - Preliminary Urine,Clean Catch - Imaging and Cardiology CT scan - abdomen: image reviewed US - abdomen: image reviewed (Imaging consistent with very thickened gallbladder wall highest suspicious for acute on chronic cholecystitis. CT of the abdomen and pelvis for more lap reviewed consistent with bilateral inguinal hernia as well as confirmed right renal infarct) Assessment and Plan (1) Inguinal hernia bilateral, non-recurrent Status: Acute (2) Cooper esophagus Status: Acute (3) CAD (coronary artery disease) Status: Acute (4) Diverticula of colon Status: Acute (5) HTN (hypertension) Status: Acute (6) Hyperlipemia Status: Acute (7) Hypertensive heart disease with CHF (congestive heart failure) Status: Acute (8) Leukocytosis Status: Acute (9) Renal infarct Status: Acute (10) Right lower quadrant abdominal pain Status: Acute (11) Tubular adenoma of colon Status: Acute (12) COPD (chronic obstructive pulmonary disease) Status: Acute (13) Cardiomyopathy Status: Acute Plan: 1. CT of the abdomen and pelvis also confirmed a thickened gallbladder wall alongside his ultrasound also conferment thickened gallbladder wall consistent with acute and chronic cholecystitis with presentation of leukocytosis. His leukocytosis has improved with placement of antibiotics. 2. Additionally, on exam he has focal right groin tenderness. CT of the abdomen and pelvis also demonstrates bilateral inguinal hernia where the left is symptomatic. He will likely need surgical intervention. 3. Would recommend likely inpatient cholecystectomy with features of moderate thickened gallbladder wall and leukocytosis for acute on chronic cholecystitis once medically and cardiology cleared.
[2016-09-10] MEDS: ASPIRIN 325 MG TAB PO SCH (21:23)
[2016-09-10] MEDS: PANTOPRAZOLE 40 MG TABLET PO SCH (21:23)
[2016-09-10] MEDS: ATORVASTATIN 40 MG TAB PO SCH (21:23)
[2016-09-11] MEDS: AMPICILLIN-SULBACTAM 3 GM in SODIUM CHLORIDE 0.9% 100 ML IVPB SCH ×2 (03:55→09:23)
[2016-09-11] MEDS: SODIUM CHLORIDE 0.9% 1,000 ML IV SCH ×2 (03:57→09:24)
[2016-09-11 07:36] LABS: Anion Gap 6 mmol/L; Blood Urea Nitrogen 11 mg/dL (9-20); Calcium 8.7 mg/dL (8.4-10.2); Carbon Dioxide 27 mmol/L (22-30); Chloride 105 mmol/L (98-107); Glucose 97 mg/dL (74-99); Non-African American GFR(MDRD) >60 (>60 ml/min/1.73 sqM); Potassium 4.2 mmol/L (3.5-5.1); Sodium 138 mmol/L (137-145)
[2016-09-11 07:43] LABS: Basophils % (A) 1 %; CH 32.3; CHCM 35.6; Eosinophils # (A) 0.3 k/uL (0-0.7); Eosinophils % (A) 3 %; HCT 41.5 % (39.0-53.0); HDW 2.69; HGB 14.5 gm/dL (13.0-17.5); Luc # (Auto) 0.22; Luc % (Auto) 3; Lymphocytes # (A) 1.8 k/uL (1.0-4.8); Lymphocytes % (A) 21 %; MCH 31.8 pg (25.0-35.0); MCHC 34.9 g/dL (31.0-37.0); MCV 91.2 fL (80.0-100.0); Mean Platelet Volume 7.8; Monocytes # (A) 0.9 k/uL (0-1.0); Monocytes % (A) 10 %; Neutrophils # (A) 5.1 k/uL (1.3-7.7); Neutrophils % (A) 62 %; RBC 4.55 m/uL (4.30-5.90); RDW 13.4 % (11.5-15.5); WBC 8.2 k/uL (3.8-10.6); WBC (Perox) 8.15
[2016-09-11 09:16] VITALS: BP 160/74; PULSE 81; TEMP 98.3
--- NOTE | 2016-09-11 09:19 | PN ---
DATE OF SERVICE: 09/10/2016 This 55-year-old gentleman admitted with abdominal pain also had a renal infarct and the patient underwent TEA by Dr. Espinoza to rule out the possibility of any primary cardiac etiology showed mild to moderate mitral and mild tricuspid regurgitation. No evidence of intracardiac thrombus was noted. No chest pain. No palpitation. No fever. On exam, alert and oriented times three. Pulse 54, blood pressure 176/89, respiration 18, temperature 98.7. Pulse ox 97% on room air. HEENT: Conjunctivae normal. NECK: No jugular venous distention. CARDIOVASCULAR: S1, S2 muffled. RESPIRATORY: Breath sounds diminished at the bases. No rhonchi. No crackles. ABDOMEN: Soft, nontender. No mass palpable. LEGS: No edema. No swelling. CENTRAL NERVOUS SYSTEM: No focal deficits. LABS: CRP 68.6. CBC within normal limits. ASSESSMENT: 1. Abdominal pain, fever for evaluation, possibly secondary right renal infarct. 2. Rule out cholecystitis. 3. Increased WBC. 4. CRP. 5. History of coronary artery disease, coronary artery bypass grafting. 6. Hypertension, essential. 7. History of degenerative joint disease. 8. History of pneumonia. 9. History of recent dental extractions. 10. History of esophagogastroduodenoscopy and colonoscopy. 11. Status post TEA showing no vegetations. 12. History of nicotine dependence. 13. History of THC. 14. History of coronary artery disease. 15. FULL CODE. RECOMMENDATIONS AND DISCUSSION: Recommend to continue current medications, continue to monitor. Symptomatic treatment. Otherwise, at this time, I would recommend continue with empiric antibiotics. Closely follow with multiple consultants. Surgical input appreciated. Guarded prognosis. Further recommendations to follow. MTDD
[2016-09-11] MEDS: amLODIPine 5 MG TAB PO SCH (09:23)
[2016-09-11] MEDS: NICOTINE 14MG/24HR PATCH TRANSDERM SCH (09:23)
[2016-09-11] MEDS: CARVEDILOL 12.5 MG TAB PO SCH (09:23)
[2016-09-11] MEDS: LISINOPRIL 5 MG TAB PO SCH (09:23)
[2016-09-11 09:46] VITALS: RESP 16
--- NOTE | 2016-09-11 10:52 | P.PN ---
Subjective Principal diagnosis: Right lower abdominal pain Patient is a 55-year-old gentleman well-known to me who presents with right renal infarct. Today he is doing quite well. His abdominal pain had improved. Diagnostic studies were consistent with chronic cholecystitis. Separately he has history of bilateral inguinal hernias symptomatica on the right. Overall symptoms has improved. Objective - Vital Signs Vital signs: Vital Signs Temp 98.3 F 09/11/16 07:00 Pulse 81 09/11/16 07:00 Resp 16 09/11/16 08:00 BP 160/74 09/11/16 07:00 Pulse Ox 95 09/11/16 07:00 Intake & Output 09/10/16 09/11/16 09/11/16 18:59 06:59 18:59 Intake Total 1400 250 Balance 1400 250 Weight 107.5 kg Intake: IV 100 Intake, IV Titration 900 Amount Sodium Chloride 0.9% 1, 900 000 ml @ 120 mls/hr IV . Q8H20M [facility] Rx#:[id number] Oral 400 250 Other: Voiding Method Toilet Toilet Toilet Urinal Urinal # Voids 3 3 # Bowel Movements 3 - Exam GENERAL: Well developed and in no acute distress. Pleasant. HEENT: No sclera icterus. Extraocular movements grossly intact. Moist buccal mucosa. Head is atraumatic, normocephalic. Hears conversational speech. No nasal drainage. Wears glasses. He is edentulous. NECK: Supple without lymphadenopathy. CHEST: Non-labored respirations and equal bilateral excursions. CARDIOVASCULAR: Regular rate and rhythm. Palpable 2+ radial pulses. ABDOMEN: Soft, nondistended, no peritoneal signs. Decreased tenderness along the right groin. MUSCULOSKELETAL: No clubbing, cyanosis or edema. NEUROLOGIC: No focal or lateralizing signs. Cranial nerves II-12 grossly intact. PSYCH: Appropriate affect. Alert and oriented to person, place and time. - Labs CBC & Chem 7: 09/11/16 07:00 09/11/16 07:00 Labs: Abnormal Lab Results - Last 24 Hours (Table) 09/10/16 Range/Units 06:59 C-Reactive Protein 68.6 H (<10.0) mg/L Microbiology - Last 24 Hours (Table) 09/09/16 21:05 Urine Culture - Final Urine,Clean Catch 09/09/16 12:28 Blood Culture - Preliminary Blood No Growth after 24 hours 09/09/16 11:54 Blood Culture - Preliminary Blood No Growth after 24 hours 09/09/16 11:17 Blood Culture - Preliminary Blood No Growth after 24 hours Assessment and Plan (1) Inguinal hernia bilateral, non-recurrent Status: Acute (2) Cooper esophagus Status: Acute (3) CAD (coronary artery disease) Status: Acute (4) Diverticula of colon Status: Acute (5) HTN (hypertension) Status: Acute (6) Hyperlipemia Status: Acute (7) Hypertensive heart disease with CHF (congestive heart failure) Status: Acute (8) Leukocytosis Status: Acute (9) Renal infarct Status: Acute (10) Right lower quadrant abdominal pain Status: Acute (11) Tubular adenoma of colon Status: Acute (12) COPD (chronic obstructive pulmonary disease) Status: Acute (13) Cardiomyopathy Status: Acute Plan: 1. Patient is clear from a surgical standpoint for outpatient cholecystectomy and future bilateral inguinal hernia repair. 2. Recommend low-fat diet in the interim. Tentative schedule for cholecystectomy for September 19Monday as an outpatient.
--- NOTE | 2016-09-11 12:44 | PN ---
DATE OF SERVICE: 09/10/2016 Reason for follow up is possible cholecystitis in patient with renal infarct and question of infection. INTERVAL HISTORY: The patient has been breathing comfortably. Denies significant chest pain. Occasional cough. Pain in the right lower abdomen has not improved. No nausea, vomiting or diarrhea. On examination, blood pressure 176/89 with a pulse of 84. Temperature is 98.7. He is 95% on room air. General description is middle aged male lying in bed in no distress. RESPIRATORY SYSTEM: Unlabored breathing. Clear to auscultation anteriorly. HEART: S1, S2 regular rate and rhythm. ABDOMEN: Soft, mildly tender in lower quadrant area. LABS; Hemoglobin is 14.1, white count 8.6 with BUN of 11, creatinine 0.92. Blood and urine cultures so far negative. DIAGNOSTIC IMPRESSION AND PLAN: Patient with right lower abdominal pain. The patient did have CT scan as outpatient with a question of renal infarct. Ultrasound here is suspicious for possible cholecystitis. Surgery is on the case. Patient continues on Unasyn at this point. white count this morning. Adjust antibiotics further based on his clinical response and cultures. Continue supportive care. MTDD
--- NOTE | 2016-09-12 14:56 | DS ---
DATE OF ADMISSION: 09/08/2016 DATE OF DISCHARGE: 09/11/2016 FINAL DIAGNOSES: 1. Abdominal pain, fever, possibly secondary to right to renal infarct. 2. Possible acute on chronic cholecystitis. 3. Increased WBC. 4. Increased CRP. 5. History of coronary artery disease, coronary artery bypass grafting. 6. Hypertension, essential. 7. History of degenerative joint disease. 8. Pneumonia. 9. History of recent dental extractions. 10. History of EGD and colonoscopy. 11. History TEA showing no vegetations. 12. History of nicotine dependence. 13. History of THC. 14. History of coronary artery disease. 15. Inguinal hernia, bilateral. 16. FULL CODE. DISCHARGE DISPOSITION: The patient will be discharged in a stable condition with guarded prognosis. Discharge cleared by multiple consultants. HISTORY OF PRESENT ILLNESS: This 55-year-old gentleman with a past medical history of multiple medical problems admitted with abdominal pain as well as possibly a right renal infarct. The patient had multiple evaluations including TEA which ruled out any. Surgery saw the patient and Dr. Salvador recommended outpatient follow-up patient. Infectious disease also saw the patient. The patient improved significantly. The patient also had inguinal hernia and Dr. Salvador recommended outpatient follow up. On exam, vitals stable. CARDIOVASCULAR SYSTEM: S1, S2 muffled. Abdomen soft. Central nervous system: No focal deficits. DISCHARGE ADVICE AND MEDICATIONS: 1. Diet is cardiac, soft, 2. Activity limited until follow-up. 3. Follow up with Dr. Sebastian Naidu in 1 to 2 days. 4. Fu with Dr. Salvador as recommended. 5. Medications are as follows: 6. Norvasc 5 mg in the morning. 7. Augmentin 875 mg p.o. b.i.d. for 5 days. 8. Ecotrin 320 mg q.h.s. 9. Lipitor 40 mg q.h.s. 10. Coreg 12.5 mg p.o. b.i.d. 11. [place] 5 mg q.4. 12. Prinivil 5 mg in the morning. 13. Habitrol 14 patch 14 daily. 14. Omeprazole 40 mg p.o. q.h.s. MTDD
== END 2016-09-11 14:40 | disposition home or self-care (01) | DRG 699 ==
LOC: EC 17:38 → 5MS5E 19:33
PROVIDERS: ADMIT Internal Medicine; ATTEND Internal Medicine
PROC: B245ZZ4 Ultrasonography of Left Heart, Transesophageal (ICD-10-PCS; principal; 2016-09-10 08:30)
DX: N28.0 Ischemia and infarction of kidney (principal); I42.9 Cardiomyopathy, unspecified; K81.2 Acute cholecystitis with chronic cholecystitis; I11.0 Hypertensive heart disease with heart failure; I50.9 Heart failure, unspecified; I08.1 Rheumatic disorders of both mitral and tricuspid valves; E78.5 Hyperlipidemia, unspecified; F12.90 Cannabis use, unspecified, uncomplicated; F17.200 Nicotine dependence, unspecified, uncomplicated; I25.10 Atherosclerotic heart disease of native coronary artery without angina pectoris; K22.70 Barrett's esophagus without dysplasia; K40.20 Bilateral inguinal hernia, without obstruction or gangrene, not specified as recurrent; K57.30 Diverticulosis of large intestine without perforation or abscess without bleeding; M19.90 Unspecified osteoarthritis, unspecified site; J44.9 Chronic obstructive pulmonary disease, unspecified; D12.6 Benign neoplasm of colon, unspecified; Z79.899 Other long term (current) drug therapy; Z79.82 Long term (current) use of aspirin; Z95.1 Presence of aortocoronary bypass graft; Z82.49 Family history of ischemic heart disease and other diseases of the circulatory system
CPT/HCPCS: 36415; 76705; 76770; 80048; 80053; 81001; 82150; 82550; 82553; 83690; 84484; 85025; 85652; 86140; 87040; 87086; 93005; 93306; 93312; 93320; 93325; 96360; 99285

== ENCOUNTER 2016-09-19 09:32 | Day surgery (SDC) | payer OTHER ==
[2016-09-14 15:28] VITALS: BMI 33.3
--- NOTE | 2016-09-19 07:51 | P.GSHP ---
History of Present Illness H&P Date: 09/19/16 CHIEF COMPLAINT: Cholecystitis HISTORY OF PRESENT ILLNESS: The patient is a 55-year-old male who presents with history of epigastric including right upper quadrant abdominal pain. He underwent diagnostic studies for his gallbladder. Separately his clinical picture was consistent with cholecystitis. Now he presents for surgical intervention. He was recently hospitalized for cholecystitis. PAST MEDICAL HISTORY: Please see list PAST SURGICAL HISTORY: Please see list MEDICATIONS: Please see list ALLERGIES: Denies. SOCIAL HISTORY: No illicit drug use or recent tobacco use FAMILY HISTORY: Pertinent for gallbladder disease REVIEW OF ORGAN SYSTEMS: CONSTITUTIONAL: No reports of fevers or chills. HEENT: Denies any troubles with the vision or hearing. PHYSICAL EXAM: VITAL SIGNS: Afebrile vital signs stable GENERAL: Well-developed pleasant male in no acute distress. HEENT: No scleral icterus. Extraocular movements grossly intact. Moist buccal mucosa. NECK: Supple without lymphadenopathy. CHEST: Unlabored respirations. Equal bilateral excursions. CARDIOVASCULAR: Regular rate regular rhythm rhythm. Distal 2+ pulses. ABDOMEN: Soft, nondistended. Tender along the epigastrium and right upper quadrant. MUSCULOSKELETAL: No clubbing, cyanosis, or edema. NEURO :Moves all extremities 4+/5. PSYCH: Alert and oriented to person, place and time. ASSESSMENT: 1. Epigastric and right upper quadrant abdominal pain 2. Cholecystitis PLAN: 1. Will need a laparoscopic cholecystectomy possible open. Benefits and risks were described. 2. Heparin for DVT prophylaxis 5000 units. 3. Antibiotic prophylaxis. 4. Repeat CBC and comprehensive metabolic panel on day of this procedure. Past Medical History Past Medical History: GERD/Reflux, Hyperlipidemia, Hypertension, Myocardial Infarction ([place]), Osteoarthritis (OA), Pneumonia Additional Past Medical History / Comment(s): pneumonia 2016, "leaky valve", just d/c from [facility] for lower right sided abd pain & right renal infarct per CT scan Last Myocardial Infarction Date:: unknown History of Any Multi-Drug Resistant Organisms: None Reported Past Surgical History: Coronary Bypass/CABG, Heart Catheterization, Orthopedic Surgery Additional Past Surgical History / Comment(s): hand surg., stomach biopsy, triple bypass September 2015, recent TEA Past Anesthesia/Blood Transfusion Reactions: No Reported Reaction Past Psychological History: No Psychological Hx Reported Smoking Status: Current every day smoker Past Alcohol Use History: Occasional Additional Past Alcohol Use History / Comment(s): has smoked since teens, trying to quit, down to 1/2ppd from 1ppd Past Drug Use History: Marijuana Additional Drug Use History / Comment(s): rare use - Past Family History Mother Family Medical History: Diabetes Mellitus Father Family Medical History: Coronary Artery Disease (CAD) Additional Family Medical History / Comment(s): CABG Medications and Allergies Home Medications Medication Instructions Recorded Confirmed Type Aspirin EC [Ecotrin] 325 mg PO HS 09/16/15 09/14/16 History Carvedilol [Coreg*] 12.5 mg PO BID 09/08/16 09/14/16 History Lisinopril [Prinivil] 5 mg PO QAM 09/08/16 09/14/16 History Omeprazole 40 mg PO HS 09/08/16 09/14/16 History amLODIPine [Norvasc] 5 mg PO QAM 09/08/16 09/14/16 History Allergies Allergy/AdvReac Type Severity Reaction Status Date / Time No Known Allergies Allergy Verified 09/14/16 15:03
[~2016-09-19 09:32] MED LIST: ACETAMINOPHEN IV (For NPO) 1,000 MG in EMPTY BAG 1 BAG IVPB ONE; DEXAMETHASONE SOD PHOSPHATE 10 MG/ML 1 ML VIAL IV ONE; HEPARIN SODIUM,PORCINE 5,000 UNIT/ML 1 ML VIAL SQ ONE; HYDROmorphone 1 MG/ML 1 ML SYRINGE IVP PRN; LACTATED RINGERS 1,000 ML IV SCH; LIDOCAINE 1% 20 ML VIAL (10MG/ML) FOR IV START INTRADERMA PRN; ONDANSETRON 4 MG/2 ML VIAL IVP ONE; SCOPOLAMINE 1.5MG/72HR PATCH TRANSDERM ONE; ceFAZolin 2 GM in SODIUM CHLORIDE 0.9% 100 ML IVPB ONE
[2016-09-19 09:50] VITALS: RESP 16
[2016-09-19 10:08] LABS: Basophils % (A) 1 %; CH 31.7; CHCM 34.5; Eosinophils # (A) 0.3 k/uL (0-0.7); Eosinophils % (A) 4 %; HCT 46.5 % (39.0-53.0); HDW 2.61; HGB 16.1 gm/dL (13.0-17.5); Luc # (Auto) 0.18; Luc % (Auto) 3; Lymphocytes # (A) 1.7 k/uL (1.0-4.8); Lymphocytes % (A) 29 %; MCHC 34.6 g/dL (31.0-37.0); MCV 92.5 fL (80.0-100.0); Mean Platelet Volume 7.3; Monocytes # (A) 0.5 k/uL (0-1.0); Monocytes % (A) 9 %; Neutrophils # (A) 3.3 k/uL (1.3-7.7); Neutrophils % (A) 55 %; RBC 5.03 m/uL (4.30-5.90); RDW 13.5 % (11.5-15.5); WBC 6.1 k/uL (3.8-10.6); WBC (Perox) 5.63
--- NOTE | 2016-09-19 10:13 | P.HPADDEND ---
H&P Addendum H&P Addendum Date: 09/19/16 Will proceed with robotic-assisted laparoscopic cholecystectomy.
[2016-09-19 10:20] LABS: Anion Gap 8 mmol/L; Calcium 8.9 mg/dL (8.4-10.2); Carbon Dioxide 27 mmol/L (22-30); Chloride 104 mmol/L (98-107); Glucose 130 mg/dL (74-99); Non-African American GFR(MDRD) >60 (>60 ml/min/1.73 sqM); Sodium 139 mmol/L (137-145); Total Protein 7.5 g/dL (6.3-8.2)
[2016-09-19 10:25] LABS: Potassium 4.9 mmol/L (3.5-5.1)
[2016-09-19 10:26] LABS: AST 31 U/L (17-59); Alkaline Phosphatase 112 U/L (38-126); Blood Urea Nitrogen 14 mg/dL (9-20)
[2016-09-19 10:27] LABS: ALT 42 U/L (21-72)
[2016-09-19] MEDS ORDERED: MIDAZOLAM 2 MG/2 ML VIAL ONE (10:32)
[2016-09-19] MEDS ORDERED: LIDOCAINE 1% INJ 10MG/ML (20 ML MDV) ONE (10:32)
[2016-09-19] MEDS ORDERED: ROCURONIUM BROMIDE 10 MG/ML 10 ML VIAL IV ONE (10:32)
[2016-09-19] MEDS ORDERED: ePHEDrine 50 MG/ML 1 ML AMP ONE (10:32)
[2016-09-19] MEDS ORDERED: SUCCINYLCHOLINE CHLORIDE 100 MG/5 ML SYR IV ONE (10:32)
[2016-09-19] MEDS ORDERED: NEOSTIGMINE 1 MG/ML 10 ML VIAL ONE (10:32)
[2016-09-19] MEDS ORDERED: PROPOFOL 10 MG/ML 20 ML VIAL IV ONE (10:32)
[2016-09-19] MEDS ORDERED: GLYCOPYRROLATE 0.2 MG/ML 2 ML VIAL ONE (10:32)
[2016-09-19] MEDS ORDERED: fentaNYL (PF) 50 MCG/ML 2 ML AMP ONE (10:32)
[2016-09-19] MEDS ORDERED: BUPIVACAIN-EPI 0.25%-1:200,000 30 ML VIAL SQ ONE (11:03)
[2016-09-19] MEDS ORDERED: LACTATED RINGERS 1,000 ML IV ONE (11:51)
--- NOTE | 2016-09-19 12:51 | P.OP ---
Date of Procedure: 09/19/16 Preoperative Diagnosis: Postoperative Diagnosis: Procedure(s) Performed: Implants: Indications for Procedure: Operative Findings: Description of Procedure: SURGEON: ANA SALVADOR MD ELECTRONIC TYPESETTING MACHINE OPERATOR: Brandy House PREOPERATIVE DIAGNOSES: 1. Chronic cholecystitis. 2. Family history of gallbladder disease. 3. Obesity due to excess calories. 4. Body mass index 33.3 5. Hypertensive heart disease with heart failure. 6. Right upper quadrant abdominal pain. 7. Coronary artery disease with history of CABG. POSTOPERATIVE DIAGNOSES: 1. Chronic cholecystitis. 2. Family history of gallbladder disease. 3. Obesity due to excess calories. 4. Body mass index 33.3 5. Hypertensive heart disease with heart failure. 6. Right upper quadrant abdominal pain. 7. Coronary artery disease with history of CABG. OPERATION: Robotic-assisted laparoscopic cholecystectomy, multiport ESTIMATED BLOOD LOSS: 5 mL. SPECIMENS REMOVED: Gallbladder. COMPLICATIONS: None. OPERATIVE FINDINGS: 1. Moderate to severe fatty infiltration of gallbladder wall. INDICATIONS: The patient is a 55-year-old male who presents with chronic cholelcystitis. He completed diagnostic studies and hospitalized before for similar complaints. Surgical intervention with a laparoscopic cholecystectomy was described at length including injury to the biliary tree, bleeding, infection, need for further surgery. Informed consent was obtained. Robotic assisted laparoscopic approach was described. Benefits and risks of the procedure including but not limited to bleeding, infection, injury to the biliary tree was described. Informed consent was obtained. DESCRIPTION OF PROCEDURE: Patient was brought to the operating room, placed in supine position. After general induction, the abdomen had been prepped and draped in standard sterile fashion. The robotic da Damaris SI system was primed. After a timeout protocol was performed, the patient had been prepped and draped in standard sterile fashion. The robot was docked along the right lateral abdomen. The patient was repositioned in reverse Trendelenburg position. Please note prior to docking of the robot; however, a 5 mm 0 degrees laparoscopic trocar entry was performed along the left upper quadrant. Next, two 8 mm robotic ports were placed along the right upper abdomen. The camera 12-mm port was maintained along the epigastrium. Another 8 mm port was placed along the left upper abdominal wall after exchanging the 5 mm port. Please note that the ports were placed at least 10 to 15 cm away from the target anatomy of the gallbladder. Using a grasper for arm 3, a long dissecting grasper for arm 2, including hook cautery for arm 1, the robotic system was docked and primed as described. Instruments were interchanged by the procurement assistant including hook cautery, Bovie cautery scissors and clip appliers. I had sat at the console. Adhesions were identified along the infundibulum of the gallbladder and addressed using hook cautery including blunt dissection with a long forceps grasper. Diagnostic laparoscopy demonstrated moderate fatty infiltration of the gallbladder wall adding difficulty to the case. The gallbladder fundus was retracted over the dome of the liver. Initial attention was brought to the infundibulum which was gently retracted in the inferior lateral approach. Using a long forceps grasper, the cystic duct including the cystic artery was carefully skeletonized. Using a clip finishing frame runner 2 clips were placed proximally, and 2 clip was placed distally along the cystic duct and then cut with scissors. Care was taken to avoid any injury to the biliary tree as the common bile duct. Next, the cystic artery was clipped twice proximally, once distally and then cauterized the cut. Electro-Bovie cautery was used to remove the gallbladder from the hepatic fossa without decompression of the gallbladder. Hemostasis was checked and found to be adequate. The robot was undocked. I re-scrubbed into the case. Using a 10 mm Endo Catch bag via the 12 mm port, the specimen was removed from the abdominal cavity. The 12 mm port site was oversewn using 0 Vicryl including a [place] as well. All pneumoperitoneum instruments were evacuated from the abdominal cavity. The incisions were reapproximated using 4-0 Monocryl in an interrupted subcuticular fashion. Please note along the trocar sites, local anesthetic was placed as a field block prior to insertion of all instruments. Dermabond was applied to the skin. At the end of the procedure needle, sponge, and instrument count had been verified correct by the surgical services director. The patient was transferred to postanesthesia care unit in stable condition. Plan - Discharge Summary New Discharge Prescriptions: New Hydrocodone/Acetaminophen [[place] 5-325] 1 - 2 each PO Q6HR PRN #20 tab PRN Reason: Pain No Action Aspirin EC [Ecotrin] 325 mg PO HS Atorvastatin [Lipitor] 40 mg PO HS #90 tablet amLODIPine [Norvasc] 5 mg PO QAM Omeprazole 40 mg PO HS Carvedilol [Coreg*] 12.5 mg PO BID Lisinopril [Prinivil] 5 mg PO QAM Amoxic-Pot Clav 875-125Mg [Augmentin Xr 875-125] 1 each PO Q12HR #10 tablet HYDROcodone/APAP 5-325MG [[place] 5-325] 1 each PO Q4HR PRN #20 tab PRN Reason: Moderate Pain Discharge Medication List Aspirin EC [Ecotrin] 325 mg PO HS 09/16/15 [History] Atorvastatin [Lipitor] 40 mg PO HS #90 tablet 09/21/15 [Rx] Carvedilol [Coreg*] 12.5 mg PO BID 09/08/16 [History] Lisinopril [Prinivil] 5 mg PO QAM 09/08/16 [History] Omeprazole 40 mg PO HS 09/08/16 [History] amLODIPine [Norvasc] 5 mg PO QAM 09/08/16 [History] Amoxic-Pot Clav 875-125Mg [Augmentin Xr 875-125] 1 each PO Q12HR #10 tablet [Rx] HYDROcodone/APAP 5-325MG [[place] 5-325] 1 each PO Q4HR PRN #20 tab 09/11/16 [Rx] Hydrocodone/Acetaminophen [[place] 5-325] 1 - 2 each PO Q6HR PRN #20 tab 09/19/16 [Rx] Follow up Appointment(s)/Referral(s): Ana Salvador MD [STAFF PHYSICIAN] - 09/27/16 (Please confirm time of appointment) Patient Instructions/Handouts: Laparoscopic Cholecystectomy (DC) Activity/Diet/Wound Care/Special Instructions: No lifting over 4 pounds in 2 weeks Discharge Disposition: HOME SELF-CARE
[2016-09-19 13:09] VITALS: TEMP 97.4
[2016-09-19] MEDS ORDERED: HYDROcodone/APAP 5-325MG 1 EACH TAB PO ONE (14:38)
[2016-09-19 15:34] VITALS: BP 129/76; PULSE 47
== END 2016-09-19 15:50 | disposition home or self-care (01) ==
LOC: OR 09:32
PROVIDERS: ATTEND Surgery Plastic and Reconstructive Surgery
DX: K81.1 Chronic cholecystitis (principal); K82.8 Other specified diseases of gallbladder; Z83.79 Family history of other diseases of the digestive system; E66.09 Other obesity due to excess calories; Z68.33 Body mass index [BMI] 33.0-33.9, adult; I11.9 Hypertensive heart disease without heart failure; I25.10 Atherosclerotic heart disease of native coronary artery without angina pectoris; Z95.1 Presence of aortocoronary bypass graft; K21.9 Gastro-esophageal reflux disease without esophagitis; E78.5 Hyperlipidemia, unspecified; I25.2 Old myocardial infarction; M19.90 Unspecified osteoarthritis, unspecified site; F17.200 Nicotine dependence, unspecified, uncomplicated; Z79.82 Long term (current) use of aspirin; Z79.899 Other long term (current) drug therapy; Z79.2 Long term (current) use of antibiotics; Z79.891 Long term (current) use of opiate analgesic
CPT/HCPCS: 88304; 80053; 85025; 47562; J2250; J1644; J1100; J2710; J0690; J2405; J2001; J3010; J0131; J0330; J2704

== ENCOUNTER → 2016-11-16 | Outpatient (CLI) | payer OTHER ==
[2016-11-16 09:28] LABS: ALT 46 U/L (21-72); AST 24 U/L (17-59); Alkaline Phosphatase 102 U/L (38-126); Anion Gap 9 mmol/L; Blood Urea Nitrogen 24 mg/dL (9-20); Calcium 9.3 mg/dL (8.4-10.2); Carbon Dioxide 29 mmol/L (22-30); Chloride 106 mmol/L (98-107); Cholesterol 114 mg/dL (<200); Glucose 139 mg/dL (74-99); HDL Cholesterol 30 mg/dL (40-60); Non-African American GFR(MDRD) >60 (>60 ml/min/1.73 sqM); Potassium 5.2 mmol/L (3.5-5.1); Sodium 144 mmol/L (137-145); Total Bilirubin 0.5 mg/dL (0.2-1.3); Triglycerides 136 mg/dL (<150)
== END | disposition home or self-care (01) ==
LOC: LABWHC1 08:33
PROVIDERS: ATTEND Internal Medicine Interventional Cardiology
DX: E78.2 Mixed hyperlipidemia (principal)
CPT/HCPCS: 36415; 80053; 80061

== ENCOUNTER → 2017-05-26 | Outpatient (CLI) | payer OTHER ==
[2017-05-26 09:32] LABS: ALT 43 U/L (21-72); AST 25 U/L (17-59); Cholesterol 111 mg/dL (<200); Creatine Kinase 60 U/L (55-170); HDL Cholesterol 32 mg/dL (40-60); LDL Cholesterol,Calculated 60 mg/dL (0-99); Triglycerides 95 mg/dL (<150)
== END | disposition home or self-care (01) ==
LOC: LABWHC1 08:38
PROVIDERS: ATTEND Internal Medicine Interventional Cardiology
DX: E78.2 Mixed hyperlipidemia (principal)
CPT/HCPCS: 36415; 80061; 82550; 84450; 84460

== ENCOUNTER → 2017-06-09 | Outpatient (CLI) | payer OTHER ==
[2017-06-09 11:51] LABS: Appearance,Urine Clear (Clear); Basophils # (A) 0.1 k/uL (0-0.2); Basophils % (A) 1 %; Bilirubin,Urine Negative (Negative); Blood,Urine Negative (Negative); Color,Urine Colorless; Eosinophils # (A) 0.2 k/uL (0-0.7); Eosinophils % (A) 2 %; Glucose,Urine (UA) Negative (Negative); HCT 52.3 % (39.0-53.0); HGB 17.2 gm/dL (13.0-17.5); Ketones,Urine Negative (Negative); Leukocyte Esterase,Urine Negative (Negative); Lymphocytes # (A) 2.1 k/uL (1.0-4.8); Lymphocytes % (A) 26 %; MCH 29.7 pg (25.0-35.0); MCV 90.1 fL (80.0-100.0); Mean Platelet Volume 7.7; Monocytes # (A) 0.7 k/uL (0-1.0); Monocytes % (A) 9 %; Neutrophils # (A) 4.8 k/uL (1.3-7.7); Neutrophils % (A) 59 %; Nitrite,Urine Negative (Negative); Platelet Count 208 k/uL (150-450); Protein,Urine Trace (Negative); RDW 13.4 % (11.5-15.5); Specific Gravity,Urine 1.001 (1.001-1.035); Urobilinogen,Urine <2.0 mg/dL (<2.0)
[2017-06-09 12:21] LABS: Anion Gap 11 mmol/L; Blood Urea Nitrogen 15 mg/dL (9-20); Carbon Dioxide 27 mmol/L (22-30); Chloride 100 mmol/L (98-107); Potassium 4.7 mmol/L (3.5-5.1); Sodium 138 mmol/L (137-145)
== END | disposition home or self-care (01) ==
LOC: LABPAT 11:15
PROVIDERS: ATTEND Surgery
DX: Z01.812 Encounter for preprocedural laboratory examination (principal); I74.10 Embolism and thrombosis of unspecified parts of aorta
CPT/HCPCS: 36415; 80051; 81003; 82565; 84520; 85025

== ENCOUNTER 2017-06-14 09:23 | Inpatient (IN) | payer OTHER ==
[~2017-06-14 09:23] MED LIST changes: -ACETAMINOPHEN IV (For NPO) 1,000 MG in EMPTY BAG 1 BAG IVPB ONE; -HEPARIN SODIUM,PORCINE 5,000 UNIT/ML 1 ML VIAL SQ ONE; +HYDROmorphone 0.5 MG/0.5 ML SYRINGE IVP PRN; -HYDROmorphone 1 MG/ML 1 ML SYRINGE IVP PRN; -LIDOCAINE 1% 20 ML VIAL (10MG/ML) FOR IV START INTRADERMA PRN; +MORPHINE SULFATE 4 MG/ML SYRINGE IVP PRN; -SCOPOLAMINE 1.5MG/72HR PATCH TRANSDERM ONE; -ceFAZolin 2 GM in SODIUM CHLORIDE 0.9% 100 ML IVPB ONE; +ceFAZolin IN SWFI 2 GM/20 ML SYRINGE IVP ONE
[2017-06-14] MEDS ORDERED: LIDOCAINE 1% 20 ML VIAL (10MG/ML) FOR IV START INTRADERMA ONE (10:00)
[2017-06-14] MEDS ORDERED: fentaNYL (PF) 50 MCG/ML 2 ML AMP IVP ONE (10:18)
[2017-06-14] MEDS: MIDAZOLAM 2 MG/2 ML VIAL IV PRN ×2 (10:18→12:01)
--- NOTE | 2017-06-14 10:51 | XR ---
EXAMINATION TYPE: XR chest 1V confirm line plcal DATE OF EXAM: 06/14/2017 HISTORY: Shortness of breath. COMPARISON: 09/21/2015 TECHNIQUE: Single view of the chest is submitted. FINDINGS: Right IJ central venous line demonstrates its tip overlying the SVC. There is no evidence for a pneum othorax. Demonstrated are scattered senescent parenchymal change. Scattered patchy infiltrates noted. There is no evidence for focal infiltrate. The heart is enlarged. Hilar and mediastinal structures are within normal limits. Degenerative changes are seen of the dorsal spine. IMPRESSION: 1. Appropriate central venous line placement. 2. Scattered patchy densities with cardiomegaly.
[2017-06-14] MEDS ORDERED: NALOXONE 0.4 MG/ML 1 ML VIAL IV PRN ×2 (12:01→16:39)
[2017-06-14] MEDS ORDERED: fentaNYL (PF) 50 MCG/ML 2 ML AMP ONE (13:13)
[2017-06-14] MEDS ORDERED: ePHEDrine SULFATE/0.9% NACL/PF 50 MG/5 ML SYRINGE IV ONE (13:13)
[2017-06-14] MEDS ORDERED: HEPARIN SODIUM,PORCINE 10,000 UNIT/ML 1 ML VIAL ONE (13:13)
[2017-06-14] MEDS ORDERED: NEOSTIGMINE 1 MG/ML 10 ML VIAL ONE (13:13)
[2017-06-14] MEDS ORDERED: GLYCOPYRROLATE 0.2 MG/ML 2 ML VIAL ONE (13:13)
[2017-06-14] MEDS ORDERED: ETOMIDATE 2 MG/ML 10 ML VIAL ONE (13:13)
[2017-06-14] MEDS ORDERED: WATER FOR INJECTION, STERILE 10 ML VIAL IV ONE (13:13)
[2017-06-14] MEDS ORDERED: LIDOCAINE 1% INJ 10MG/ML (20 ML MDV) ONE (13:13)
[2017-06-14] MEDS ORDERED: MIDAZOLAM 2 MG/2 ML VIAL ONE (13:13)
[2017-06-14] MEDS ORDERED: ROCURONIUM BROMIDE 10 MG/ML 10 ML VIAL IV ONE (13:13)
[2017-06-14] MEDS ORDERED: hydrALAZINE HCL 20 MG/ML 1 ML VIAL ONE (13:13)
[2017-06-14] MEDS ORDERED: LABETALOL 5 MG/ML VIAL MDV ONE (13:13)
[2017-06-14] MEDS ORDERED: THROMBIN (BOVINE) 5,000 UNIT VIAL TOPICAL ONE (14:12)
[2017-06-14] MEDS ORDERED: SODIUM CHLORIDE 0.9% 1,000 ML IV ONE ×2 (14:13→15:14)
[2017-06-14] MEDS ORDERED: GELATIN SPONGE,ABSORB (LARGE) 1 EACH SPONGE MISCELLANE ONE (14:13)
[2017-06-14] MEDS ORDERED: LACTATED RINGERS 1,000 ML IV ONE (14:48)
[2017-06-14] MEDS ORDERED: HYDROcodone/APAP 5-325MG 1 EACH TAB PO PRN (16:44)
--- NOTE | 2017-06-14 17:00 | P.OP ---
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 Postoperative diagnosis: Same. Operative procedure: Aortobifemoral bypass graft. Surgeon: Rommel Linder D.O. Nursing Educator surgeon: Paulino Licea D.O. Type of case: Elective. Anesthesia: Gen. endotracheal. EBL 600 mL's, with 300 mL's returned via Cell Saver. Specimen: None. Complications: None apparent. Indications: Patient is a 56-year-old male who presented to the office with a chief complaint of bilateral lower extremity claudication which is lysed limiting for him. He had undergone a workup which included CT angiography as well as catheter angiography which demonstrated bilateral external iliac artery occlusion extending the entire length of the external iliac artery on both sides. He was evaluated by cardiology and felt to be a reasonable risk from a cardiac standpoint. Physical examination revealed absence of femoral, popliteal as well as pedal pulses bilaterally. Arterial Doppler studies demonstrated marked arterial insufficiency bilaterally. The patient was not felt to be a good candidate for endovascular repair due to the extensive occlusive disease occurring bilaterally and thus patient is offered aortal bi- femoral bypass graft. Technique: Patient was brought the upper and placed in the supine position and administered general endotracheal anesthesia delivered by the department of anesthesiology. Barrios catheter is placed to gravity drainage. The patient's abdomen chest pelvic area bilateral anterior thigh areas were still prepped and draped in usual manner. Patient received 2 g of Ancef intravenously in the perioperative phase for prophylactic antibiotic purposes. A midline incision from just below the xiphoid extending down toward the anterior pubis was made and carried down through the subcu tissues. Hemostasis was achieved using electrocautery. The fascia was incised as well as the peritoneum and entrance was gained to the peritoneal cavity. Adhesions between the peritoneum and omentum were encountered and these were taken down with electrocautery. The small bowel was run from the ligament of Treitz to the cecum. No abnormality was noted. The large bowel was run through its entire length to the peritoneal reflection and no abnormality was noted. Bookwalter self-retaining retractors were placed in the small and large bowel were packed from harm's way. The posterior peritoneum overlying the aorta was incised and carried down to the level of the aorta. The aorta was dissected free of investing tissues. The inferior mesenteric artery was identified and encircled with a vessel loop. The origins of both the left and right common iliac arteries were dissected free of investing tissues. Attention was turned to the right groin where a skin incision parallel with the inguinal crease was made and carried down through subjacent tissues. Hemostasis was achieved using electrocautery. Incision was deepened through the subcutaneous tissues. Fascia was incised and the common femoral artery was identified. The artery itself was absent of pulse or was relatively soft and good for outflow purposes. The origin of the profundus as well as the common and superficial femoral arteries were encircled with Vesseloops. A similar procedure was performed on the contralateral side. Umbilical tape was passed between the retroperitoneal space to the incision. A similar procedure was performed on the contralateral side. The patient was systemically heparinized and after adequate circulation time vascular clamps were utilized to occlude the distal abdominal aorta as well as the origins of the common iliac arteries bilaterally. ACT was 256. Aortotomy was made and extended with Nuñez scissors. Good inflow was identified. An 18mm x 9 mm PTFE graft was selected and cut to appropriate length and spatulated to match the aortotomy. End to side anastomosis between the graft and the artery was completed with 4-0 Prolene suture. Once completed flow was restored through the graft and excellent pulsatile flow was identified through each limb of the graft. The graft was then occluded. One point of bleeding was noted along the anastomotic line and this was controlled with 4-0 Prolene suture. Vessels surrounding the femoral vessels on the right were drawn closed. Arteriotomy was made in the common femoral artery and extended with Nuñez scissors. Good backbleeding through both the superficial femoral and profundus femoris vessels was noted. The right limb of the graft was cut the appropriate length and spatulated to match the arteriotomy. End-to-side anastomosis between the graft and the artery was completed with 5-0 Prolene suture placed in running fashion. Just prior to completion of the anastomotic line the profundus femoris as well as the superficial femoral artery were flushed and no thrombus was retrieved. The right limb of the graft was also flushed and again no thrombus was retrieved. The anastomotic line was then completed and flow restored through the graft into the profundus and then into the superficial femoral artery. The anastomotic line was hemostatic. Excellent pulsatile flow was noted in both the profundus and superficial femoral arteries. A similar procedure with similar findings was noted on the contralateral side. All wounds were irrigated with antibiotic containing solution. All wounds were inspected for hemostasis and this was judged to be adequate. In the groins layer closure of the deep tissues was accomplished with 2-0 Vicryl suture. Dermis was closed with 4-0 Monocryl placed in running intradermal fashion proper dressings were placed over both wounds. The retroperitoneum was reapproximated with 2-0 Vicryl suture. Small large bowel were returned to their normal anatomic positions. The omentum was pulled down. The fascia was closed with looped PDS placed in a running fashion. The wound was irrigated and skin edges were reapproximated with skin reji. Proper dressings were applied. Patient tolerated procedure well. Palpable posterior tibial pulses were noted at the completion of the procedure. He was taken the recovery room in satisfactory and stable condition.
[2017-06-14] MEDS ORDERED: ONDANSETRON 4 MG/2 ML VIAL IVP PRN (17:02)
[2017-06-14] MEDS ORDERED: MAG HYDROX/AL HYDROX/SIMETH 30 ML CUP PO PRN (17:02)
[2017-06-14] MEDS: BUPIVACAINE (PF) 0.5% 37.5 ML, fentaNYL (PF) 625 MCG in SODIUM CHLORIDE 0.9% 200 ML EPIDURAL PRN ×2 (17:30→18:32)
[2017-06-14] MEDS ORDERED: hydrALAZINE HCL 20 MG/ML 1 ML VIAL IVP ONE (17:54)
[2017-06-14 18:44] LABS: Glucose,Whole Blood 183 mg/dL (75-99)
[2017-06-14] MEDS: DEXTROSE 5%-0.45% NACL 1,000 ML IV SCH (19:33)
[2017-06-14] MEDS: LISINOPRIL 10 MG TAB PO SCH (22:02)
[2017-06-14] MEDS: CARVEDILOL 12.5 MG TAB PO SCH (22:02)
[2017-06-14] MEDS: ATORVASTATIN 40 MG TAB PO SCH (22:02)
[2017-06-14] MEDS: PANTOPRAZOLE 40 MG TABLET PO SCH (22:02)
[2017-06-14] MEDS: ceFAZolin IN SWFI 2 GM/20 ML SYRINGE IVP SCH (23:39)
[2017-06-14] MEDS: HEPARIN SODIUM,PORCINE 5,000 UNIT/ML 1 ML VIAL SQ SCH (23:39)
[2017-06-15] MEDS: BUPIVACAINE (PF) 0.5% 37.5 ML, fentaNYL (PF) 625 MCG in SODIUM CHLORIDE 0.9% 200 ML EPIDURAL PRN ×3 (01:57→23:27)
[2017-06-15 05:09] LABS: Basophils % (A) 0 %; Eosinophils % (A) 0 %; HGB 16.4 gm/dL (13.0-17.5); Lymphocytes # (A) 1.2 k/uL (1.0-4.8); Lymphocytes % (A) 9 %; MCH 30.5 pg (25.0-35.0); MCHC 33.5 g/dL (31.0-37.0); MCV 90.9 fL (80.0-100.0); Mean Platelet Volume 7.9; Monocytes # (A) 0.9 k/uL (0-1.0); Monocytes % (A) 6 %; Neutrophils # (A) 11.7 k/uL (1.3-7.7); Neutrophils % (A) 84 %; Platelet Count 199 k/uL (150-450); RBC 5.39 m/uL (4.30-5.90); RDW 13.7 % (11.5-15.5)
[2017-06-15 05:14] LABS: Anion Gap 7 mmol/L; Blood Urea Nitrogen 16 mg/dL (9-20); Calcium 8.4 mg/dL (8.4-10.2); Carbon Dioxide 26 mmol/L (22-30); Chloride 100 mmol/L (98-107); Glucose 165 mg/dL (74-99); Phosphorus 3.3 mg/dL (2.5-4.5); Potassium 4.8 mmol/L (3.5-5.1); Sodium 133 mmol/L (137-145)
[2017-06-15] MEDS: DEXTROSE 5%-0.45% NACL 1,000 ML IV SCH (06:56)
[2017-06-15] MEDS: LISINOPRIL 10 MG TAB PO SCH ×2 (06:58→20:22)
[2017-06-15] MEDS ORDERED: Magnesium Replacement Protocol 1 EACH MISC MISCELLANE PRN (07:33)
[2017-06-15] MEDS: CARVEDILOL 12.5 MG TAB PO SCH ×2 (08:05→20:22)
[2017-06-15] MEDS: HEPARIN SODIUM,PORCINE 5,000 UNIT/ML 1 ML VIAL SQ SCH ×3 (08:33→23:27)
[2017-06-15] MEDS: ASPIRIN 325 MG TAB PO SCH (08:34)
[2017-06-15] MEDS: MAGNESIUM SULFATE-D5W PMX 1 GM in DEXTROSE/WATER 1 100ML.BAG IVPB SCH ×2 (08:34→09:47)
[2017-06-15] MEDS: DOCUSATE 100 MG CAP PO SCH (08:35)
[2017-06-15 08:49] LABS: Glucose,Whole Blood 147 mg/dL (75-99)
[2017-06-15] MEDS: NITROGLYCERIN-D5W PMX 250 ML IV ONE ×2 (08:57→08:59)
[2017-06-15] MEDS: NITROGLYCERIN-D5W PMX 50 MG in DEXTROSE/WATER 1 250ML.BAG IV SCH (08:59)
[2017-06-15] MEDS: INSULIN ASPART 100 UNIT/ML 1 ML 10 ML VIAL SQ SCH ×4 (09:09→20:25)
[2017-06-15 09:24] LABS: Glucose,Whole Blood 172 mg/dL (75-99)
--- NOTE | 2017-06-15 09:36 | P.CONS ---
History of Present Illness - Reason for Consult Consult date: 06/15/17 elevated blood sugar Requesting physician: Rommel Linder - Chief Complaint leg pain - History of Present Illness Patient is a 56-year-old male with a past medical history of hypertension, dyslipidemia, coronary artery disease, GERD, peripheral arterial disease who presented for elective bilateral external iliac occlusions. He underwent aortobifem bypass grafting on 06/14 without any immediate complications. We have been consulted for elevated blood sugars. Patient is seen and examined at bedside. He complains of bilateral leg pain. He states it is well controlled with his current pain medications. He denies any chest pain, shortness breath, nausea, or vomiting. He states they told him his blood sugars were high and he was not surprised. His brother, father, and mother have all had diabetes. He has never had this in the past. He follows with Dr. Naidu in [place]. Review of Systems General: no fever/chills, no rigors, no weight loss/weight gain, no unusual fatigue Eyes: no noticable visual changes, no loss of vision ENT: no rhinorrhea, no congestion, no sore throat Cardiovascular: no chest pain, no palpitations, no preyncope/syncope, no edema, bilateral lower extremity pain Pulmonary: no shortness of breath, no wheezing, no cough Abdominal: no abdominal pain, no constipation, no diarrhea, no vomiting, no nausea Genitourinary: no dysuria, no urinary frequency, no unusual discharge/odor Neuro: no unusual paresthesias, no unusual paresis/paralysis, no headache Dermatologic: no unusual rashes, no unusual lesions, no unusual changes in nails Hematologic: no hemoptysis, no hematuria, no melena/hematochezia Psychiatric: no changes in mood or behaviors, no changes in sleep pattern Past Medical History Past Medical History: GERD/Reflux, Hyperlipidemia, Hypertension, Myocardial Infarction (ID), Osteoarthritis (OA), Pneumonia, Vascular Disorder Additional Past Medical History / Comment(s): has right sided hernia, peripheral arterial disease, pneumonia 2015, heart murmur Last Myocardial Infarction Date:: unknown History of Any Multi-Drug Resistant Organisms: None Reported Past Surgical History: Cholecystectomy, Coronary Bypass/CABG, Heart Catheterization, Orthopedic Surgery Additional Past Surgical History / Comment(s): L hand surg., stomach biopsy, triple bypass September 2015, EGD,colonoscopy, TEA Past Anesthesia/Blood Transfusion Reactions: No Reported Reaction Past Psychological History: No Psychological Hx Reported Smoking Status: Former smoker Past Alcohol Use History: Occasional Additional Past Alcohol Use History / Comment(s): has smoked since teens, trying to quit, down to <1/2ppd from 1ppd Past Drug Use History: Marijuana Additional Drug Use History / Comment(s): 2 yrs. ago - Past Family History Mother Family Medical History: Diabetes Mellitus Father Family Medical History: Coronary Artery Disease (CAD), Diabetes Mellitus Additional Family Medical History / Comment(s): CABG Brother(s) Family Medical History: Diabetes Mellitus Medications and Allergies Home Medications Medication Instructions Recorded Confirmed Type Aspirin EC [Ecotrin] 325 mg PO DAILY 09/16/15 06/14/17 History Atorvastatin [Lipitor] 40 mg PO HS #90 tablet 09/21/15 06/14/17 Rx Carvedilol [Coreg*] 12.5 mg PO BID 09/08/16 06/14/17 History Lisinopril [Prinivil] 10 mg PO BID 09/08/16 06/14/17 History Omeprazole 40 mg PO HS 09/08/16 06/14/17 History Hydrocodone/Acetaminophen [[place] 1 - 2 each PO Q6HR PRN #20 tab 09/19/16 Rx 5-325] Allergies Allergy/AdvReac Type Severity Reaction Status Date / Time No Known Allergies Allergy Verified 06/14/17 17:14 Physical Exam Osteopathic Statement: *. No significant issues noted on an osteopathic structural exam other than those noted in the History and Physical/Consult. Vitals: Vital Signs Temp Pulse Pulse Pulse Resp BP BP 06/15/17 09:00 68 19 161/85 06/15/17 08:00 98.6 F 58 L 17 155/78 06/15/17 07:15 58 L 20 157/80 06/15/17 07:00 74 24 152/79 06/15/17 06:45 65 21 114/64 06/15/17 06:30 59 L 17 114/64 06/15/17 06:15 63 20 114/64 06/15/17 06:00 62 18 128/71 06/15/17 05:45 61 17 128/71 06/15/17 05:30 60 17 128/71 03/01/18 05:15 60 18 128/71 18 05:00 62 18 128/65 06/15/17 04:45 62 20 128/65 18 04:30 61 17 128/65 18 04:15 66 22 128/65 18 04:00 98.6 F 62 20 130/64 03/18 03:45 62 16 130/64 18 03:30 61 17 130/64 18 03:15 64 21 130/64 18 03:00 69 20 120/63 18 02:45 64 18 120/63 18 02:30 67 17 120/63 06/15/17 02:15 66 16 120/63 06/15/17 02:00 66 21 148/63 06/15/17 01:45 70 29 H 136/73 06/15/17 01:30 57 L 17 136/73 06/15/17 01:15 68 18 136/73 06/15/17 01:00 66 21 122/78 06/15/17 00:45 60 16 122/78 06/15/17 00:30 68 17 122/78 06/15/17 00:15 76 27 H 122/78 06/15/17 00:00 98.6 F 72 23 117/75 18 23:45 66 18 117/75 06/14/17 23:30 75 15 117/75 06/14/17 23:15 73 20 117/75 18 23:00 65 17 133/68 06/14/17 22:45 72 20 133/68 18 22:30 70 18 133/68 18 22:20 71 18 133/68 18 22:15 71 19 133/68 18 22:00 76 23 142/65 06/14/17 21:45 76 19 137/72 18 21:30 63 17 119/69 18 21:15 74 20 145/76 18 21:00 66 17 136/72 18 20:45 66 17 144/84 06/14/17 20:30 73 20 119/74 18 20:15 70 19 140/73 06/14/17 20:00 98.7 F 72 20 142/78 06/14/17 19:45 71 20 145/77 06/14/17 19:30 72 21 132/77 06/14/17 19:15 71 22 128/75 06/14/17 19:00 75 22 141/87 06/14/17 18:10 68 16 06/14/17 17:55 64 18 06/14/17 17:40 67 18 06/14/17 17:25 66 18 06/14/17 17:11 97.4 F L 68 16 06/14/17 12:02 65 16 06/14/17 11:50 59 L 20 06/14/17 11:01 47 L 18 06/14/17 09:46 98.4 F 58 L 18 190/81 BP BP BP Pulse Ox 06/15/17 09:00 94 L 06/15/17 08:00 95 06/15/17 07:15 96 06/15/17 07:00 95 06/15/17 06:45 96 06/15/17 06:30 95 06/15/17 06:15 96 06/15/17 06:00 95 06/15/17 05:45 95 06/15/17 05:30 95 06/15/17 05:15 95 06/15/17 05:00 96 06/15/17 04:45 96 06/15/17 04:30 95 06/15/17 04:15 95 06/15/17 04:00 96 06/15/17 03:45 96 06/15/17 03:30 95 06/15/17 03:15 96 06/15/17 03:00 95 06/15/17 02:45 96 06/15/17 02:30 94 L 06/15/17 02:15 96 06/15/17 02:00 94 L 06/15/17 01:45 95 06/15/17 01:30 94 L 06/15/17 01:15 93 L 06/15/17 01:00 95 06/15/17 00:45 94 L 06/15/17 00:30 93 L 06/15/17 00:15 89 L 06/15/17 00:00 91 L 06/14/17 23:45 93 L 06/14/17 23:30 95 06/14/17 23:15 92 L 06/14/17 23:00 95 06/14/17 22:45 93 L 06/14/17 22:30 94 L 06/14/17 22:20 93 L 06/14/17 22:15 91 L 06/14/17 22:00 94 L 06/14/17 21:45 95 06/14/17 21:30 96 06/14/17 21:15 95 06/14/17 21:00 96 06/14/17 20:45 94 L 06/14/17 20:30 95 06/14/17 20:15 97 06/14/17 20:00 92 L 06/14/17 19:45 93 L 06/14/17 19:30 95 06/14/17 19:15 93 L 06/14/17 19:00 93 L 06/14/17 18:10 167/74 152/82 95 06/14/17 17:55 168/78 166/91 96 06/14/17 17:40 180/78 167/97 96 06/14/17 17:25 182/78 171/95 96 06/14/17 17:11 187/85 176/102 97 06/14/17 12:02 143/76 94 L 06/14/17 11:50 181/100 96 06/14/17 11:01 143/82 97 06/14/17 09:46 97 Intake and Output 06/14/17 06/15/17 06/15/17 22:59 06:59 14:59 Intake Total 524 624 235.375 Output Total 900 450 60 Balance -376 174 175.375 Intake: IV 524 624 234 Dextrose 5%-0.45% NaCl 1, 300 600 225 000 ml @ 75 mls/hr IV . [id number] DEVEN Rx#:[id number] Pressure Bag Normal 12 24 9 [place] 0.9% Intake, IV Titration 1.375 Amount Nitroglycerin-D5w Pmx 50 1.375 mg In Dextrose/Water 1 250ml.bag @ Titrate IV . Q0M DEVEN Rx#:[id number] Output: Urine 900 450 60 Other: Voiding Method Indwelling Catheter Indwelling Catheter Weight 109.769 kg 110 kg ABP, PAP, CO, CI - Last 8 Hours Arterial Blood Pressure 162/78 Arterial Blood Pressure 177/76 Arterial Blood Pressure 190/83 Arterial Blood Pressure 177/82 Arterial Blood Pressure 172/77 Arterial Blood Pressure 154/66 Arterial Blood Pressure 154/71 Arterial Blood Pressure 166/71 Arterial Blood Pressure 165/72 Arterial Blood Pressure 161/70 Arterial Blood Pressure 161/72 Arterial Blood Pressure 168/75 Arterial Blood Pressure 162/70 Arterial Blood Pressure 155/71 Arterial Blood Pressure 180/79 Arterial Blood Pressure 148/66 Arterial Blood Pressure 154/69 Arterial Blood Pressure 148/66 Arterial Blood Pressure 151/67 Arterial Blood Pressure 150/67 Arterial Blood Pressure 153/66 Arterial Blood Pressure 141/71 Arterial Blood Pressure 86/74 Arterial Blood Pressure 114/72 General: non toxic, no distress, appears at stated age, obese Derm: no unusual rashes/lesions no unusual ecchymoses, warm, dry Head: atraumatic, normocephalic, symmetric Eyes: EOMI, no lid lag, anicteric sclera, pupils equal round reactive to light ENT: Nose and ears atraumatic, no thrush, no pharyngeal erythema Neck: No thyromegaly, no cervical lymphadenopathy, trachea midline, supple Mouth: no lip lesion, mucus membranes moist Cardiovascular: S1S2 reg, no murmur, positive dorsalis pedis pulse bilateral, no edema, capillary refill less than 2 seconds Lungs: CTA bilateral, no rhonchi, no rales , no accessory muscle use Abdominal: soft, nontender to palpation, no guarding, no appreciable organomegaly, normal bowel sounds Ext: no gross muscle atrophy, muscle strength 5 out of 5 in upper extremities, no contractures, Neuro: CN II-XI grossly intact, light touch intact all 4 extremities, finger to nose within normal limits, Psych: Alert, oriented, appropriate affect Results CBC & Chem 7: 06/15/17 04:50 06/15/17 04:50 Labs: Abnormal Lab Results - Last 24 Hours (Table) 06/14/17 06/15/17 06/15/17 Range/Units 18:43 04:50 04:50 WBC 14.0 H (3.8-10.6) k/uL Neutrophils # 11.7 H (1.3-7.7) k/uL Sodium 133 L (137-145) mmol/L Glucose 165 H (74-99) mg/dL POC Glucose (mg/dL) 183 H (75-99) mg/dL 06/15/17 06/15/17 Range/Units 08:48 09:22 WBC (3.8-10.6) k/uL Neutrophils # (1.3-7.7) k/uL Sodium (137-145) mmol/L Glucose (74-99) mg/dL POC Glucose (mg/dL) 147 H 172 H (75-99) mg/dL Assessment and Plan Assessment: Hyperglycemia -Change D5 half-normal to normal saline -Sliding-scale insulin -Check hemoglobin A1c Peripheral arterial disease status post bifemoral bypass -Management per primary team Leukocytosis Likely reactive -Repeat in a.m. Hyponatremia -Likely due to hypotonic fluids plus elevated blood sugars -Change fluids to D5 half-normal to 0.9 normal saline -Repeat renal profile in a.m. Atherosclerotic coronary artery disease with history of ischemic cardiomyopathy -Continue with aspirin, statin, beta clarence, and MINGO inhibitor Hypertension, controlled -Lisinopril, Coreg -Was on nitro drip Dyslipidemia -Statin therapy Morbid obesity -Structured outpatient weight loss DVT prophylaxis: Heparin Discussed with: Patient, vascular HEADING PINNER, Nursing A total of 45 minutes was spent on the care of this complex patient more than 50 % of the time was spent in counseling and care coordination.
[2017-06-15] MEDS: SODIUM CHLORIDE 0.9% 1,000 ML IV SCH ×2 (09:40→20:26)
[2017-06-15] MEDS: ceFAZolin IN SWFI 2 GM/20 ML SYRINGE IVP SCH (09:47)
--- NOTE | 2017-06-15 11:59 | P.PN ---
Progress Note - Text Progress Note Date: 06/15/17 The patient had thoracic epidural catheter placement for postoperative pain control. He is postop day #( 1 ), status post aortobifemoral bypass. The patient is doing well. The pain is well controlled. He denies any weakness or paresthesia in the lower extremities. He denies any back pain. There are no signs of infection around the epidural catheter skin entry site. We will continue the epidural infusion of local anesthetics as per protocol.
[2017-06-15] MEDS ORDERED: INSULIN ASPART 100 UNIT/ML 1 ML 10 ML VIAL SQ SCH (12:30)
--- NOTE | 2017-06-15 12:32 | P.PN ---
Subjective Progress Note Date: 06/15/17 Principal diagnosis: Bilateral external iliac artery occlusion with bilateral lower extremity lifestyle limiting claudication, current tobacco dependence, hypertension, hyperlipidemia, history of myocardial infarction, history of coronary artery disease post coronary artery bypass grafting surgery September 2015, GERD, osteoarthritis, and history of pneumonia in 2016. POD #1 aortobifemoral bypass graft. The patient is currently lying in bed with his legs elevated. He is in no acute distress. He rates his pain 4 out of 10 on the pain scale. His epidural infusing at 7 mL per hour. He reports that his legs feel warm, he has palpable pulses to both bilateral lower extremities posterior tibial and dorsalis pedis. Oxygen saturations are 94% on 5 L nasal cannula. He has had elevated blood glucose levels as high as 183, hemoglobin A1c result pending. Objective - Vital Signs Vital signs: Vital Signs Temp 98.7 F 06/15/17 12:00 Pulse 60 06/15/17 12:00 Resp 23 06/15/17 12:00 BP 135/66 06/15/17 12:00 Pulse Ox 95 06/15/17 12:00 Intake & Output 06/14/17 06/15/17 06/15/17 18:59 06:59 18:59 Intake Total 3412 936 729.375 Output Total 1530 1050 60 Balance 1882 -114 669.375 Weight 110 kg Intake: IV 3412 936 668 Dextrose 5%-0.45% NaCl 1, 900 225 000 ml @ 75 mls/hr IV . [id number] DEVEN Rx#:[id number] Magnesium Sulfate-D5w Pmx 200 1 gm In Dextrose/Water 1 100ml.bag @ 100 mls/hr IVPB Q1H DEVEN Rx#: [id number] Pressure Bag Normal 36 18 [place] 0.9% Sodium Chloride 0.9% 1, 225 000 ml @ 75 mls/hr IV . [id number] DEVEN Rx#:[id number] Intake, IV Titration 1.375 Amount Nitroglycerin-D5w Pmx 50 1.375 mg In Dextrose/Water 1 250ml.bag @ Titrate IV . Q0M DEVEN Rx#:[id number] Other 60 Output: Urine 930 1050 60 Estimated Blood Loss 600 Other: Voiding Method Indwelling Catheter Indwelling Catheter ABP, PAP, CO, CI - Last Documented Arterial Blood Pressure 157/69 - Constitutional General appearance: Present: cooperative, no acute distress, obese - Neck Details: Neck is supple, no JVD or lymphadenopathy. - Respiratory Details: Lung sounds are essentially clear throughout, diminished to his bilateral bases. Respirations are symmetrical and nonlabored. Oxygen saturation are 94% on 5 L nasal cannula. - Cardiovascular Details: Regular rhythm and rate. S1 and S2 present, negative for S3, gallop or murmur. Bedside telemetry showing normal sinus rhythm heart rate 65. No edema present. Bilateral posterior tibial and dorsalis pedis pulses palpable. - Gastrointestinal Gastrointestinal Comment(s): Abdomen is soft, tender and nondistended. Absent bowel sounds. NG tube in place to low intermittent suction, draining brownish bile-colored drainage. 400 mL output in the last 8 hours. - Genitourinary Genitourinary Comment(s): Urine output adequate, Barrios catheter for accurate I&O, epidural is in place. 450 mole liters output in the last 8 hours. - Integumentary Integumentary Comment(s): Skin is warm, dry and pink. Midline abdominal since incision and bilateral groin incisions clean and dry. Scant serosanguineous drainage from his right groin incision. No redness present. - Neurologic Neurologic Comment(s): Epidural site clean dry and intact. Neurologic: Present: CNII-XII intact - Musculoskeletal Musculoskeletal: Present: generalized weakness, strength equal bilaterally - Psychiatric Psychiatric: Present: A&O x's 3, appropriate affect, intact judgment & insight - Allied health notes Allied health notes reviewed: nursing - Labs CBC & Chem 7: 06/15/17 04:50 06/15/17 04:50 Labs: Abnormal Lab Results - Last 24 Hours (Table) 06/14/17 06/15/17 06/15/17 Range/Units 18:43 04:50 04:50 WBC 14.0 H (3.8-10.6) k/uL Neutrophils # 11.7 H (1.3-7.7) k/uL Sodium 133 L (137-145) mmol/L Glucose 165 H (74-99) mg/dL POC Glucose (mg/dL) 183 H (75-99) mg/dL 06/15/17 06/15/17 Range/Units 08:48 09:22 WBC (3.8-10.6) k/uL Neutrophils # (1.3-7.7) k/uL Sodium (137-145) mmol/L Glucose (74-99) mg/dL POC Glucose (mg/dL) 147 H 172 H (75-99) mg/dL Assessment and Plan (1) History of myocardial infarction Current Visit: Yes Status: Acute Code(s): I25.2 - OLD MYOCARDIAL INFARCTION SNOMED Code(s): 152592777 (2) History of coronary artery disease Current Visit: Yes Status: Acute Code(s): Z86.79 - PERSONAL HISTORY OF OTHER DISEASES OF THE CIRCULATORY SYSTEM SNOMED Code(s): 194584947 (3) COPD (chronic obstructive pulmonary disease) Current Visit: No Status: Acute Code(s): J44.9 - CHRONIC OBSTRUCTIVE PULMONARY DISEASE, UNSPECIFIED SNOMED Code(s): 63926519 (4) HTN (hypertension) Current Visit: No Status: Acute Code(s): I10 - ESSENTIAL (PRIMARY) HYPERTENSION SNOMED Code(s): 67499464 (5) Hyperlipemia Current Visit: No Status: Acute Code(s): E78.5 - HYPERLIPIDEMIA, UNSPECIFIED SNOMED Code(s): 47580707 (6) S/P CABG x 3 Current Visit: No Status: Acute Code(s): Z95.1 - PRESENCE OF AORTOCORONARY BYPASS GRAFT SNOMED Code(s): 416021809 Plan: 1. Consult Dr. Xiao for medical management. 2. Nitroglycerin drip ordered for titration to keep systolic blood pressure less than 150 mmHg. 3. Incentive spirometry every hour while awake. 4. Reinforced the importance of smoking cessation. 5. Pain management per epidural orders. 6. Hemoglobin A1c. 7. Keep NG tube in place to low intermittent wall suction. 8. Further recommendations to follow as patient progresses in his care. Time with Patient: Greater than 30
[2017-06-15 12:38] LABS: Glucose,Whole Blood 134 mg/dL (75-99)
[2017-06-15 16:52] LABS: Hemoglobin A1C 7.7 % (4.0-6.0)
[2017-06-15 18:23] LABS: Glucose,Whole Blood 135 mg/dL (75-99)
[2017-06-15] MEDS: PANTOPRAZOLE 40 MG TABLET PO SCH (20:22)
[2017-06-15] MEDS: ATORVASTATIN 40 MG TAB PO SCH (20:22)
[2017-06-15 20:28] LABS: Glucose,Whole Blood 139 mg/dL (75-99)
[2017-06-16 04:53] LABS: Basophils % (A) 0 %; Eosinophils # (A) 0.1 k/uL (0-0.7); Eosinophils % (A) 1 %; HCT 42.5 % (39.0-53.0); HGB 14.2 gm/dL (13.0-17.5); Lymphocytes # (A) 1.4 k/uL (1.0-4.8); Lymphocytes % (A) 9 %; MCH 30.5 pg (25.0-35.0); MCHC 33.3 g/dL (31.0-37.0); MCV 91.6 fL (80.0-100.0); Monocytes # (A) 1.2 k/uL (0-1.0); Monocytes % (A) 8 %; Neutrophils # (A) 11.8 k/uL (1.3-7.7); Neutrophils % (A) 81 %; Platelet Count 156 k/uL (150-450); RBC 4.64 m/uL (4.30-5.90); RDW 13.7 % (11.5-15.5); WBC 14.6 k/uL (3.8-10.6)
[2017-06-16 05:06] LABS: Anion Gap 5 mmol/L; Blood Urea Nitrogen 18 mg/dL (9-20); Calcium 7.9 mg/dL (8.4-10.2); Carbon Dioxide 29 mmol/L (22-30); Chloride 99 mmol/L (98-107); Glucose 140 mg/dL (74-99); Phosphorus 2.9 mg/dL (2.5-4.5); Potassium 4.5 mmol/L (3.5-5.1); Sodium 133 mmol/L (137-145)
[2017-06-16] MEDS: NITROGLYCERIN-D5W PMX 50 MG in DEXTROSE/WATER 1 250ML.BAG IV SCH ×2 (05:36→23:37)
[2017-06-16 07:54] LABS: Glucose,Whole Blood 148 mg/dL (75-99)
[2017-06-16] MEDS: HEPARIN SODIUM,PORCINE 5,000 UNIT/ML 1 ML VIAL SQ SCH ×3 (08:32→23:34)
[2017-06-16] MEDS: INSULIN ASPART 100 UNIT/ML 1 ML 10 ML VIAL SQ SCH ×4 (08:32→21:53)
[2017-06-16] MEDS: CARVEDILOL 12.5 MG TAB PO SCH ×2 (08:33→21:52)
[2017-06-16] MEDS: LISINOPRIL 10 MG TAB PO SCH ×2 (08:36→21:52)
[2017-06-16] MEDS: DOCUSATE 100 MG CAP PO SCH (08:36)
[2017-06-16] MEDS: ASPIRIN 325 MG TAB PO SCH (08:55)
--- NOTE | 2017-06-16 09:25 | P.PN ---
Progress Note - Text Progress Note Date: 06/16/17 Postoperative day #2 status post hours to bi-bypass, epidural catheter placed for postoperative analgesia, patient doing well epidural site okay, patient currently on combination of epidural infusion solution of bupivacaine 0.0625% and fentanyle the infusion rate at 5 ml per hour , patient had no motor deficit epidural site okay , vital signs stable ,VAS 3/10 , Assessment and plan=. post operative day # 2 patient doing well ,pain well controlled , there is no anesthesia related complications, we'll continue the same management
--- NOTE | 2017-06-16 09:56 | P.PN ---
Progress Note - Text Progress Note Date: 06/16/17 Surgical postop note: D2 post aortobifemoral bypass. Alert and oriented. No significant complaints. Tolerating Barrios removal. Vital signs stable. Urine output adequate. Still requiring 5 L nasal cannula O2. Abdomen soft. Bowel sounds present. Pedal pulses bounding. Labs noted and are all satisfactory. Satisfactory status 2 days post-air bifemoral bypass DC NG tube. Increased level of activity. Lasix 20 mg IV. Consider transfer to [facility].
[2017-06-16] MEDS ORDERED: FUROSEMIDE 10 MG/ML 2 ML VIAL IV ONE (09:59)
[2017-06-16 10:41] LABS: ALT 29 U/L (21-72); AST 22 U/L (17-59); Albumin 2.5 g/dL (3.5-5.0); Alkaline Phosphatase 73 U/L (38-126); Total Bilirubin 0.8 mg/dL (0.2-1.3); Total Protein 5.3 g/dL (6.3-8.2)
--- NOTE | 2017-06-16 14:06 | P.PN ---
Subjective Progress Note Date: 06/16/17 (Delayed charting seen at approximately 9:30 AM) Principal diagnosis: leg pain Patient is a 56-year-old male with a past medical history of hypertension, dyslipidemia, coronary artery disease, GERD, peripheral arterial disease who presented for elective bilateral external iliac occlusions. He underwent aortobifem bypass grafting on 06/14 without any immediate complications. We were initially consulted for hyperglycemia. Hemoglobin A1c has come back and 7.7 consistent with diabetes. Patient seen and examined at bedside. He states that his pain is better controlled. He denies any chest pain, shortness of breath, nausea, or vomiting. He still has not had a bowel movement since surgery. Objective - Vital Signs Vital signs: Vital Signs Temp 97.9 F 06/16/17 12:00 Pulse 68 06/16/17 12:00 Resp 29 H 06/16/17 12:00 BP 124/67 06/16/17 12:00 Pulse Ox 95 06/16/17 12:00 Intake & Output 06/15/17 06/16/17 06/16/17 18:59 06:59 18:59 Intake Total 5588.360 3386.5 512 Output Total 360 1020 1175 Balance 931.175 474.5 -663 Weight 109 kg Intake: IV 1136 1358 468 Dextrose 5%-0.45% NaCl 1, 225 000 ml @ 75 mls/hr IV . [id number] DEVEN Rx#:[id number] Magnesium Sulfate-D5w Pmx 200 1 gm In Dextrose/Water 1 100ml.bag @ 100 mls/hr IVPB Q1H DEVEN Rx#: [id number] Pressure Bag Normal 36 33 18 [place] 0.9% Sodium Chloride 0.9% 1, 675 1325 450 000 ml @ 75 mls/hr IV . [id number] DEVEN Rx#:[id number] Intake, IV Titration 95.175 136.5 44 Amount Nitroglycerin-D5w Pmx 50 95.175 136.5 44 mg In Dextrose/Water 1 250ml.bag @ Titrate IV . Q0M DEVEN Rx#:[id number] Other 60 Output: Gastric Drainage 600 150 Urine 260 699 4837 Other: Voiding Method Indwelling Catheter Indwelling Catheter ABP, PAP, CO, CI - Last Documented Arterial Blood Pressure 130/87 - Exam General: non toxic, no distress, appears at stated age, obese Derm: warm, dry Head: atraumatic, normocephalic, symmetric Eyes: EOMI, no lid lag, anicteric sclera Mouth: no lip lesion, mucus membranes moist Cardiovascular: S1S2 reg, no murmur, positive posterior tibial pulse bilateral, Lungs: CTA bilateral, no rhonchi, no rales , no accessory muscle use Abdominal: soft, nontender to palpation, no guarding, no appreciable organomegaly Ext: no gross muscle atrophy, no edema, no contractures Neuro: CN II-XI grossly intact, no focal neuro deficits Psych: Alert, oriented, appropriate affect - Labs CBC & Chem 7: 06/16/17 04:30 06/16/17 04:30 Labs: Abnormal Lab Results - Last 24 Hours (Table) 06/15/17 06/15/17 06/15/17 Range/Units 04:50 18:10 20:23 WBC (3.8-10.6) k/uL Neutrophils # (1.3-7.7) k/uL Monocytes # (0-1.0) k/uL Sodium (137-145) mmol/L Glucose (74-99) mg/dL POC Glucose (mg/dL) 135 H 139 H (75-99) mg/dL Hemoglobin A1c 7.7 H (4.0-6.0) % Calcium (8.4-10.2) mg/dL Total Protein (6.3-8.2) g/dL Albumin (3.5-5.0) g/dL 06/16/17 06/16/17 06/16/17 Range/Units 04:30 04:30 07:52 WBC 14.6 H (3.8-10.6) k/uL Neutrophils # 11.8 H (1.3-7.7) k/uL Monocytes # 1.2 H (0-1.0) k/uL Sodium 133 L (137-145) mmol/L Glucose 140 H (74-99) mg/dL POC Glucose (mg/dL) 148 H (75-99) mg/dL Hemoglobin A1c (4.0-6.0) % Calcium 7.9 L (8.4-10.2) mg/dL Total Protein 5.3 L (6.3-8.2) g/dL Albumin 2.5 L (3.5-5.0) g/dL Assessment and Plan Assessment: Hyperglycemia with new onset diabetes mellitus -Sliding-scale insulin -Hemoglobin A1c 7.7 -Once bowel function has slowly returned patient is closer to discharge plan on initiating on metformin 1000 mg twice a day -Consult nurse educator -Consult dietitian -Discussed with patient importance of following up blood sugars especially with peripheral arterial disease he is aware that he will need to follow-up with his PCP, have a yearly eye exam, and have a dedicated foot exam. Peripheral arterial disease status post bifemoral bypass -Management per primary team Leukocytosis Likely reactive -Repeat in a.m. Hyponatremia, mild -Repeat in a.m. Atherosclerotic coronary artery disease with history of ischemic cardiomyopathy -Continue with aspirin, statin, beta clarence, and MINGO inhibitor Hypertension, controlled -Lisinopril, Coreg -is on nitro drip Dyslipidemia -Statin therapy Morbid obesity -Structured outpatient weight loss DVT prophylaxis: Heparin Discussed with: Patient, vascular MONOMER RECOVERY SUPERVISOR, Nursing A total of 35 minutes was spent on the care of this complex patient more than 50 % of the time was spent in counseling and care coordination.
[2017-06-16 15:15] VITALS: BMI 34.4
[2017-06-16 17:06] LABS: Glucose,Whole Blood 111 mg/dL (75-99)
[2017-06-16 20:42] LABS: Glucose,Whole Blood 117 mg/dL (75-99)
[2017-06-16] MEDS: BUPIVACAINE (PF) 0.5% 37.5 ML, fentaNYL (PF) 625 MCG in SODIUM CHLORIDE 0.9% 200 ML EPIDURAL PRN (20:45)
[2017-06-16] MEDS: SODIUM CHLORIDE 0.9% 1,000 ML IV SCH (21:51)
[2017-06-16] MEDS: ATORVASTATIN 40 MG TAB PO SCH (21:52)
[2017-06-16] MEDS: PANTOPRAZOLE 40 MG TABLET PO SCH (21:52)
[2017-06-17 04:46] LABS: HCT 37.6 % (39.0-53.0); HGB 12.9 gm/dL (13.0-17.5); MCH 31.3 pg (25.0-35.0); MCHC 34.2 g/dL (31.0-37.0); MCV 91.5 fL (80.0-100.0); Mean Platelet Volume 7.8; Platelet Count 147 k/uL (150-450); RBC 4.11 m/uL (4.30-5.90); RDW 13.6 % (11.5-15.5); WBC 13.6 k/uL (3.8-10.6)
[2017-06-17 04:55] LABS: Anion Gap 5 mmol/L; Blood Urea Nitrogen 16 mg/dL (9-20); Calcium 7.9 mg/dL (8.4-10.2); Carbon Dioxide 29 mmol/L (22-30); Chloride 99 mmol/L (98-107); Glucose 122 mg/dL (74-99); Sodium 133 mmol/L (137-145)
[2017-06-17] MEDS: SODIUM CHLORIDE 0.9% 1,000 ML IV SCH ×2 (06:53→16:37)
[2017-06-17 06:58] LABS: Glucose,Whole Blood 163 mg/dL (75-99)
[2017-06-17] MEDS: INSULIN ASPART 100 UNIT/ML 1 ML 10 ML VIAL SQ SCH ×4 (06:59→23:55)
[2017-06-17] MEDS: ASPIRIN 325 MG TAB PO SCH (09:04)
[2017-06-17] MEDS: CARVEDILOL 12.5 MG TAB PO SCH ×2 (09:04→20:09)
[2017-06-17] MEDS: HEPARIN SODIUM,PORCINE 5,000 UNIT/ML 1 ML VIAL SQ SCH ×3 (09:04→23:45)
[2017-06-17] MEDS: LISINOPRIL 10 MG TAB PO SCH ×2 (09:05→20:09)
[2017-06-17] MEDS: DOCUSATE 100 MG CAP PO SCH (09:05)
--- NOTE | 2017-06-17 09:30 | P.PN ---
Progress Note - Text Progress Note Date: 06/17/17 Surgical postop note: Day 3 post-aortobifemoral bypass. Patient has no real complaints at this time. Epidural in place. Voiding well. No BM yet. Vital signs stable. Afebrile. Urine output okay. Labs noted. abdomen is soft. Pulses palpable. Incision clean and dry. Good progress post aortobifemoral. Transferred to [facility]. Progress activities. Increase diet as tolerated.
[2017-06-17] MEDS ORDERED: hydrALAZINE HCL 20 MG/ML 1 ML VIAL IVP PRN (09:34)
[2017-06-17] MEDS ORDERED: HYDROcodone/APAP 7.5-325MG 1 EACH TAB PO PRN (09:37)
[2017-06-17 12:17] LABS: Glucose,Whole Blood 122 mg/dL (75-99)
[2017-06-17 17:14] LABS: Glucose,Whole Blood 142 mg/dL (75-99)
--- NOTE | 2017-06-17 17:30 | P.PN ---
Subjective Progress Note Date: 06/17/17 (delayed charting patient seen at 0930) Principal diagnosis: leg pain Patient is a 56-year-old male with a past medical history of hypertension, dyslipidemia, coronary artery disease, GERD, peripheral arterial disease who presented for elective bilateral external iliac occlusions. He underwent aortobifem bypass grafting on 06/14 without any immediate complications. We were initially consulted for hyperglycemia. Hemoglobin A1c has come back and 7.7 consistent with diabetes. Patient seen and examined at bedside. Sitting up in a chair. Feeling well. Pain well controlled. He did not have a bowel movement yet yesterday. He did meet with the tubing machine tender and dietitian. Discussed starting him on metformin. He will also need a glucometer for discharge. Objective - Vital Signs Vital signs: Vital Signs Temp 97.8 F 06/17/17 11:00 Pulse 56 L 06/17/17 11:00 Resp 20 06/17/17 11:00 BP 137/77 06/17/17 11:00 Pulse Ox 94 L 06/17/17 11:00 Intake & Output 06/16/17 06/17/17 06/17/17 18:59 06:59 18:59 Intake Total 1065.25 1007.975 312.65 Output Total 1550 625 450 Balance -484.75 382.975 -137.35 Weight 109 kg 110 kg 110 kg Intake: IV 918 900 300 Pressure Bag Normal 18 [place] 0.9% Sodium Chloride 0.9% 1, 900 900 300 000 ml @ 75 mls/hr IV . [id number] DEVEN Rx#:[id number] Intake, IV Titration 147.25 107.975 12.65 Amount Nitroglycerin-D5w Pmx 50 147.25 107.975 12.65 mg In Dextrose/Water 1 250ml.bag @ Titrate IV . Q0M DEVEN Rx#:[id number] Output: Gastric Drainage 150 Urine 1400 625 450 Other: Voiding Method Urinal ABP, PAP, CO, CI - Last Documented Arterial Blood Pressure 130/87 - Exam General: non toxic, no distress, appears at stated age, obese Derm: warm, dry Head: atraumatic, normocephalic, symmetric Eyes: EOMI, no lid lag, anicteric sclera Mouth: no lip lesion, mucus membranes moist Cardiovascular: S1S2 reg, no murmur, positive posterior tibial pulse bilateral, Lungs: CTA bilateral, no rhonchi, no rales , no accessory muscle use Abdominal: soft, nontender to palpation, no guarding, no appreciable organomegaly Ext: no gross muscle atrophy, no edema, no contractures Neuro: CN II-XI grossly intact, no focal neuro deficits Psych: Alert, oriented, appropriate affect - Labs CBC & Chem 7: 06/17/17 04:30 06/17/17 04:30 Labs: Abnormal Lab Results - Last 24 Hours (Table) 06/16/17 06/17/17 06/17/17 Range/Units 20:39 04:30 04:30 WBC 13.6 H (3.8-10.6) k/uL RBC 4.11 L (4.30-5.90) m/uL Hgb 12.9 L (13.0-17.5) gm/dL Hct 37.6 L (39.0-53.0) % Plt Count 147 L (150-450) k/uL Sodium 133 L (137-145) mmol/L Glucose 122 H (74-99) mg/dL POC Glucose (mg/dL) 117 H (75-99) mg/dL Calcium 7.9 L (8.4-10.2) mg/dL 06/17/17 06/17/17 06/17/17 Range/Units 06:54 11:54 16:41 WBC (3.8-10.6) k/uL RBC (4.30-5.90) m/uL Hgb (13.0-17.5) gm/dL Hct (39.0-53.0) % Plt Count (150-450) k/uL Sodium (137-145) mmol/L Glucose (74-99) mg/dL POC Glucose (mg/dL) 163 H 122 H 142 H (75-99) mg/dL Calcium (8.4-10.2) mg/dL Assessment and Plan Assessment: Hyperglycemia with new onset diabetes mellitus -Sliding-scale insulin -Hemoglobin A1c 7.7 -Once bowel function has slowly returned patient is closer to discharge plan on initiating on metformin 1000 mg twice a day -tubing machine tender and dietitian recyasmin appreciated -Discussed with patient importance of following up blood sugars especially with peripheral arterial disease he is aware that he will need to follow-up with his PCP, have a yearly eye exam, and have a dedicated foot exam. -We'll need prescription on discharge for diabetic testing supplies. Peripheral arterial disease status post bifemoral bypass -Management per primary team Leukocytosis, improving Hyponatremia, stable Atherosclerotic coronary artery disease with history of ischemic cardiomyopathy -Continue with aspirin, statin, beta clarence, and MINGO inhibitor Hypertension, controlled -Lisinopril, Coreg Dyslipidemia -Statin therapy Morbid obesity -Structured outpatient weight loss DVT prophylaxis: Heparin Discussed with: Patient, Nursing A total of 25 minutes was spent on the care of this complex patient more than 50 % of the time was spent in counseling and care coordination.
--- NOTE | 2017-06-17 17:44 | P.PN ---
Progress Note - Text Progress Note Date: 06/17/17 Postoperative day #3 status post aortic bifemoral bypass , epidural catheter placed for postoperative analgesia, patient doing well epidural site okay, patient currently on combination of epidural infusion solution of bupivacaine 0.0625% and fentanyle ,the infusion rate at 5 ml per hour , patient had no motor deficit epidural site okay , vital signs stable ,VAS 2-3 / 10 , Assessment and plan=. post operative day #3 patient doing well ,pain well controlled , there is no anesthesia related complications
[2017-06-17] MEDS: PANTOPRAZOLE 40 MG TABLET PO SCH (20:09)
[2017-06-17] MEDS: ATORVASTATIN 40 MG TAB PO SCH (20:09)
[2017-06-17 20:57] LABS: Glucose,Whole Blood 154 mg/dL (75-99)
[2017-06-18 06:02] LABS: Glucose,Whole Blood 140 mg/dL (75-99)
[2017-06-18] MEDS: SODIUM CHLORIDE 0.9% 1,000 ML IV SCH ×2 (06:20→07:01)
[2017-06-18] MEDS: INSULIN ASPART 100 UNIT/ML 1 ML 10 ML VIAL SQ SCH ×4 (07:01→21:25)
[2017-06-18 08:10] LABS: HCT 44.7 % (39.0-53.0); HGB 14.5 gm/dL (13.0-17.5); MCH 30.3 pg (25.0-35.0); MCHC 32.5 g/dL (31.0-37.0); MCV 93.4 fL (80.0-100.0); Mean Platelet Volume 7.7; Platelet Count 163 k/uL (150-450); RBC 4.79 m/uL (4.30-5.90); RDW 13.8 % (11.5-15.5); WBC 12.5 k/uL (3.8-10.6)
--- NOTE | 2017-06-18 08:27 | XR ---
EXAMINATION TYPE: XR chest 1V portable DATE OF EXAM: 06/18/2017 COMPARISON: 06/14/2017 INDICATION: Pneumonia TECHNIQUE: Single frontal view of the chest is obtained. FINDINGS: The heart size is mildly prominent. The pulmonary vasculature is normal. Mild right perihilar infiltrate is present. There are some plate atelectasis at the left midlung. The re is improved aeration to the lung cortés. A right central venous catheter is present with tip in the superior vena cava region. EKG leads overl ie the chest. IMPRESSION: 1. Improving lung infiltrates. Continued follow-up is recommended. 2. Right central venous catheter stable in position
[2017-06-18] MEDS: ASPIRIN 325 MG TAB PO SCH (09:43)
[2017-06-18] MEDS: HEPARIN SODIUM,PORCINE 5,000 UNIT/ML 1 ML VIAL SQ SCH ×3 (09:43→23:36)
[2017-06-18] MEDS: CARVEDILOL 12.5 MG TAB PO SCH ×2 (09:44→19:57)
[2017-06-18] MEDS: LISINOPRIL 10 MG TAB PO SCH ×2 (09:44→19:57)
[2017-06-18] MEDS: DOCUSATE 100 MG CAP PO SCH (09:44)
--- NOTE | 2017-06-18 10:17 | P.PN ---
Progress Note - Text Progress Note Date: 06/18/17 Surgical progress note: Date for post aortobifemoral bypass. Patient doing very well status post aortobifemoral. Still has not had a bowel movement. A lot of swelling of his penis has made urination a bit difficult. Will DC epidural. Increase activities. More leg elevation. Urology consult has been ordered. Will try to plan for discharge in the next 24-48 hours.
--- NOTE | 2017-06-18 11:07 | P.GSCN ---
History of Present Illness Consult date: 06/18/17 Reason for Consult: Penile swelling and edema History of present illness: The patient is a 56-year-old male with a history of symptomatic peripheral vascular disease involving his legs who underwent aortobifem bypass graft on . A catheter was placed at the time of the surgery and was removed on 06/16/2017. The patient says that shortly after was the catheter was removed he began noticing swelling and curvature of the penis. He says that is slightly uncomfortable but nonpainful. He has been voiding although he says he is voiding more frequently than normal. he says he normally voids every 1-3 hours during the day and occasionally at night. He says he is now voiding nearly every hour during the day and several times at night. He was noted to have paraphimosis which was relieved but he says he still has some difficulty voiding in that he is not certain that he is emptying completely. Review of Systems - Constitutional Reports as per HPI - Genitourinary Reports as per HPI Past Medical History Past Medical History: GERD/Reflux, Hyperlipidemia, Hypertension, Myocardial Infarction ([place]), Osteoarthritis ([place]), Pneumonia, Vascular Disorder Additional Past Medical History / Comment(s): has right sided hernia, peripheral arterial disease, pneumonia 2016, heart murmur Last Myocardial Infarction Date:: unknown History of Any Multi-Drug Resistant Organisms: None Reported Past Surgical History: Cholecystectomy, Coronary Bypass/CABG, Heart Catheterization, Orthopedic Surgery Additional Past Surgical History / Comment(s): L hand surg., stomach biopsy, triple bypass September 2015, EGD,colonoscopy, TEA Past Anesthesia/Blood Transfusion Reactions: No Reported Reaction Past Psychological History: No Psychological Hx Reported Smoking Status: Former smoker Past Alcohol Use History: Occasional Additional Past Alcohol Use History / Comment(s): has smoked since teens, trying to quit, down to <1/2ppd from 1ppd Past Drug Use History: Marijuana Additional Drug Use History / Comment(s): 2 yrs. ago - Past Family History Mother Family Medical History: Diabetes Mellitus Father Family Medical History: Coronary Artery Disease (CAD), Diabetes Mellitus Additional Family Medical History / Comment(s): CABG Brother(s) Family Medical History: Diabetes Mellitus Medications and Allergies Home Medications Medication Instructions Recorded Confirmed Type Aspirin EC [Ecotrin] 325 mg PO DAILY 09/16/15 06/14/17 History Atorvastatin [Lipitor] 40 mg PO HS #90 tablet 09/21/15 06/14/17 Rx Carvedilol [Coreg*] 12.5 mg PO BID 09/08/16 06/14/17 History Lisinopril [Prinivil] 10 mg PO BID 09/08/16 06/14/17 History Omeprazole 40 mg PO HS 09/08/16 06/14/17 History Hydrocodone/Acetaminophen [[place] 1 - 2 each PO Q6HR PRN #20 tab 09/19/16 Rx 5-325] Allergies Allergy/AdvReac Type Severity Reaction Status Date / Time No Known Allergies Allergy Verified 06/14/17 17:14 Surgical - Exam Vital Signs Temp Pulse Resp BP Pulse Ox 98.4 F 58 L 18 190/81 97 06/14/17 09:46 06/14/17 09:46 06/14/17 09:46 06/14/17 09:46 06/14/17 09:46 - General no distress, obese - Respiratory normal respiratory effort - Abdomen Abdomen: soft, no masses - Genitourinary other (The penis is uncircumcised and edematous. Due to the edema of the foreskin the distal portion of the foreskin is deviated to the right. Pressure on the foreskin relieves the edema and the underlying penile shaft and glans appear unremarkable. There is mild edema of the scrotal skin. Both testicles are descended.) Results - Labs 06/18/17 07:45 06/17/17 04:30 Abnormal Lab Results - Last 24 Hours (Table) 06/17/17 06/17/17 06/17/17 Range/Units 11:54 16:41 20:53 WBC (3.8-10.6) k/uL POC Glucose (mg/dL) 122 H 142 H 154 H (75-99) mg/dL 06/18/17 06/18/17 Range/Units 05:51 07:45 WBC 12.5 H (3.8-10.6) k/uL POC Glucose (mg/dL) 140 H (75-99) mg/dL Assessment and Plan (1) Edema of penis Narrative/Plan: The patient's penile edema is most likely related to his recent abdominal bifemoral bypass graft which may temporarily disrupt the lymphatic drainage from the genital region. Patient was also noted to have a somewhat low albumin and total protein which could contribute to this. I told the patient that this is usually self-limited problem and that ice and elevation will sometimes help relieve the edema quicker. The patient has been voiding more frequently then normal and a bladder scan will be done to ensure that his postvoid residual is acceptably low. No further urologic evaluation is necessary provided he is emptying his bladder adequately. Current Visit: Yes Status: Acute Code(s): N48.89 - OTHER SPECIFIED DISORDERS OF PENIS SNOMED Code(s): 031329090
[2017-06-18] MEDS ORDERED: BISACODYL 10 MG SUPP RECTAL STA (11:25)
[2017-06-18 12:03] LABS: Glucose,Whole Blood 119 mg/dL (75-99)
--- NOTE | 2017-06-18 14:24 | P.PN ---
Subjective Progress Note Date: 06/18/17 (delayed charting patient seen at 0830) Principal diagnosis: leg pain Patient is a 56-year-old male with a past medical history of hypertension, dyslipidemia, coronary artery disease, GERD, peripheral arterial disease who presented for elective bilateral external iliac occlusions. He underwent aortobifem bypass grafting on 06/14 without any immediate complications. We were initially consulted for hyperglycemia. Hemoglobin A1c has come back and 7.7 consistent with diabetes. Plans are to start on metformin prior to discharge. Patient seen and examined at bedside. Sitting up in a chair. Having increased pain today. Complains of penile and scrotal edema with penis turning to the right hand side now. Denies any chest pain, shortness of breath, nausea, or vomiting. Passing gas but has still not had a bowel movement. Patient also reports that he was unable to reduce his foreskin and is having difficulty with urination. Objective - Vital Signs Vital signs: Vital Signs Temp 99.9 F H 06/18/17 12:30 Pulse 60 06/18/17 12:30 Resp 18 06/18/17 12:30 BP 115/67 06/18/17 12:30 Pulse Ox 95 06/18/17 12:30 Intake & Output 06/17/17 06/18/17 06/18/17 18:59 06:59 18:59 Intake Total 542.65 705 600 Output Total 1100 750 Balance -557.35 -45 600 Weight 110 kg 114 kg Intake: IV 300 675 Sodium Chloride 0.9% 1, 300 675 000 ml @ 75 mls/hr IV . [id number] DEVEN Rx#:[id number] Intake, IV Titration 12.65 30 Amount Bupivacaine (Pf) 0.5% 37. 30 5 ml fentaNYL (PF) 625 mcg In Sodium Chloride 0. 9% 200 ml @ Per Protocol EPIDURAL .Q0M PRN Rx#: [id number] Nitroglycerin-D5w Pmx 50 12.65 mg In Dextrose/Water 1 250ml.bag @ Titrate IV . Q0M DEVEN Rx#:[id number] Oral 230 600 Output: Urine 1100 750 Other: Voiding Method Urinal Urinal ABP, PAP, CO, CI - Last Documented Arterial Blood Pressure 130/87 - Exam General: non toxic, no distress, appears at stated age, obese Derm: warm, dry Head: atraumatic, normocephalic, symmetric Eyes: EOMI, no lid lag, anicteric sclera Mouth: no lip lesion, mucus membranes moist Cardiovascular: S1S2 reg, no murmur, positive posterior tibial pulse bilateral, Lungs: CTA bilateral, no rhonchi, no rales , no accessory muscle use Abdominal: soft, nontender to palpation, no guarding, no appreciable organomegaly Ext: no gross muscle atrophy, no edema, no contractures Neuro: CN II-XI grossly intact, no focal neuro deficits Psych: Alert, oriented, appropriate affect Genital: edema of the forskin with inability to move freely, mild scrotal edema. - Labs CBC & Chem 7: 06/18/17 07:45 06/17/17 04:30 Labs: Abnormal Lab Results - Last 24 Hours (Table) 06/17/17 06/17/17 06/18/17 Range/Units 16:41 20:53 05:51 WBC (3.8-10.6) k/uL POC Glucose (mg/dL) 142 H 154 H 140 H (75-99) mg/dL 06/18/17 06/18/17 Range/Units 07:45 11:44 WBC 12.5 H (3.8-10.6) k/uL POC Glucose (mg/dL) 119 H (75-99) mg/dL Assessment and Plan Assessment: Hyperglycemia with new onset diabetes mellitus -Sliding-scale insulin -Hemoglobin A1c 7.7 -Once bowel function has slowly returned patient is closer to discharge plan on initiating on metformin 1000 mg twice a day -cricket coach and dietitian recs appreciated -Discussed with patient importance of following up blood sugars especially with peripheral arterial disease he is aware that he will need to follow-up with his PCP, have a yearly eye exam, and have a dedicated foot exam. -We'll need prescription on discharge for diabetic testing supplies. Penile edema - consult urology, elevate Peripheral arterial disease status post bifemoral bypass -Management per primary team Leukocytosis, improving Hyponatremia, stable Atherosclerotic coronary artery disease with history of ischemic cardiomyopathy -Continue with aspirin, statin, beta clarence, and MINGO inhibitor Hypertension, controlled -Lisinopril, Coreg Dyslipidemia -Statin therapy Morbid obesity -Structured outpatient weight loss DVT prophylaxis: Heparin Discussed with: Patient, Nursing A total of 25 minutes was spent on the care of this complex patient more than 50 % of the time was spent in counseling and care coordination.
[2017-06-18 17:15] LABS: Glucose,Whole Blood 97 mg/dL (75-99)
[2017-06-18] MEDS: PANTOPRAZOLE 40 MG TABLET PO SCH (19:57)
[2017-06-18] MEDS: ATORVASTATIN 40 MG TAB PO SCH (19:57)
[2017-06-18] MEDS ORDERED: SENNOSIDES 8.6 MG TAB PO SCH (21:00)
[2017-06-18 21:03] LABS: Glucose,Whole Blood 134 mg/dL (75-99)
[2017-06-19] MEDS: SODIUM CHLORIDE 0.9% 1,000 ML IV SCH (03:41)
[2017-06-19 04:16] VITALS: PULSE 65
[2017-06-19 06:00] LABS: Glucose,Whole Blood 146 mg/dL (75-99)
[2017-06-19] MEDS: INSULIN ASPART 100 UNIT/ML 1 ML 10 ML VIAL SQ SCH ×2 (06:43→11:42)
[2017-06-19] MEDS: HEPARIN SODIUM,PORCINE 5,000 UNIT/ML 1 ML VIAL SQ SCH (07:58)
[2017-06-19] MEDS: CARVEDILOL 12.5 MG TAB PO SCH (07:59)
[2017-06-19] MEDS: LISINOPRIL 10 MG TAB PO SCH (07:59)
[2017-06-19] MEDS: ASPIRIN 325 MG TAB PO SCH (07:59)
[2017-06-19] MEDS: DOCUSATE 100 MG CAP PO SCH (07:59)
[2017-06-19 08:08] VITALS: BP 158/83; RESP 16; TEMP 99.4
--- NOTE | 2017-06-19 10:08 | P.PN ---
Subjective Progress Note Date: 06/19/17 Principal diagnosis: leg pain Patient is a 56-year-old male with a past medical history of hypertension, dyslipidemia, coronary artery disease, GERD, peripheral arterial disease who presented for elective bilateral external iliac occlusions. He underwent aortobifem bypass grafting on 06/14 without any immediate complications. We were initially consulted for hyperglycemia. Hemoglobin A1c has come back and 7.7 consistent with diabetes. Plans are to start on metformin prior to discharge. Patient seen and examined at bedside. Heeling well today. No chest pain. No nausea. No vomiting. No diarrhea. Feeling well. D/W patient to take BS in AM prior to eating provided with blood sugar log sheet. Objective - Vital Signs Vital signs: Vital Signs Temp 99.4 F 06/19/17 08:07 Pulse 65 06/19/17 08:07 Resp 16 06/19/17 08:07 BP 158/83 06/19/17 08:07 Pulse Ox 94 L 06/19/17 08:07 Intake & Output 06/18/17 06/19/17 06/19/17 18:59 06:59 18:59 Intake Total 1240 Output Total 800 140 300 Balance 440 -140 -300 Weight 113.5 kg Intake: Oral 1240 Output: Urine 800 140 300 Other: Voiding Method Toilet Toilet Urinal Urinal # Voids 1 ABP, PAP, CO, CI - Last Documented Arterial Blood Pressure 130/87 - Exam General: non toxic, no distress, appears at stated age, obese Derm: warm, dry Head: atraumatic, normocephalic, symmetric Eyes: EOMI, no lid lag, anicteric sclera Mouth: no lip lesion, mucus membranes moist Cardiovascular: S1S2 reg, no murmur, positive posterior tibial pulse bilateral, Lungs: CTA bilateral, no rhonchi, no rales , no accessory muscle use Abdominal: soft, nontender to palpation, no guarding, no appreciable organomegaly Ext: no gross muscle atrophy, no edema, no contractures Neuro: CN II-XI grossly intact, no focal neuro deficits Psych: Alert, oriented, appropriate affect - Labs CBC & Chem 7: 06/18/17 07:45 06/17/17 04:30 Labs: Abnormal Lab Results - Last 24 Hours (Table) 06/18/17 06/18/17 06/19/17 Range/Units 11:44 21:00 05:54 POC Glucose (mg/dL) 119 H 134 H 146 H (75-99) mg/dL Assessment and Plan Assessment: Hyperglycemia with new onset diabetes mellitus -d/c Sliding-scale insulin -Hemoglobin A1c 7.7 -metformin 500 mg BID -wholesale diamond broker and dietitian recs appreciated -Discussed with patient importance of following up blood sugars especially with peripheral arterial disease he is aware that he will need to follow-up with his PCP, have a yearly eye exam, and have a dedicated foot exam. -Rx written for diabetic supplies Penile edema - urology recs appreciated , elevate Peripheral arterial disease status post bifemoral bypass -Management per primary team Leukocytosis, improving Hyponatremia, stable Atherosclerotic coronary artery disease with history of ischemic cardiomyopathy -Continue with aspirin, statin, beta clarence, and MINGO inhibitor Hypertension, controlled -Lisinopril, Coreg Dyslipidemia -Statin therapy Morbid obesity -Structured outpatient weight loss Medically stable for D/C new Rx for metformin, follow-up added to D/C orders DVT prophylaxis: Heparin Discussed with: Patient, Nursing A total of 25 minutes was spent on the care of this complex patient more than 50 % of the time was spent in counseling and care coordination.
[2017-06-19] MEDS ORDERED: metFORMIN 500 MG TAB PO SCH (10:15)
[2017-06-19 11:27] LABS: Glucose,Whole Blood 111 mg/dL (75-99)
== END 2017-06-19 12:32 | disposition home health service (06) | DRG 271 ==
LOC: 2ORMAIN 09:23 → 6ICU 16:35 → 6SEL 06-17 10:48
PROVIDERS: ADMIT Surgery; ATTEND Surgery
PROC: 30233N0 Transfusion of Autologous Red Blood Cells into Peripheral Vein, Percutaneous Approach (ICD-10-PCS; 2017-06-14)
PROC: 04100JK Bypass Abdominal Aorta to Bilateral Femoral Arteries with Synthetic Substitute, Open Approach (ICD-10-PCS; principal; 2017-06-14 10:45)
DX: I70.213 Atherosclerosis of native arteries of extremities with intermittent claudication, bilateral legs (principal); E87.1 Hypo-osmolality and hyponatremia; E11.51 Type 2 diabetes mellitus with diabetic peripheral angiopathy without gangrene; E66.01 Morbid (severe) obesity due to excess calories; E11.65 Type 2 diabetes mellitus with hyperglycemia; D72.829 Elevated white blood cell count, unspecified; I10 Essential (primary) hypertension; I25.10 Atherosclerotic heart disease of native coronary artery without angina pectoris; I25.2 Old myocardial infarction; F17.210 Nicotine dependence, cigarettes, uncomplicated; I25.5 Ischemic cardiomyopathy; J44.9 Chronic obstructive pulmonary disease, unspecified; K21.9 Gastro-esophageal reflux disease without esophagitis; N47.2 Paraphimosis; N48.89 Other specified disorders of penis; N50.89 Other specified disorders of the male genital organs; M19.90 Unspecified osteoarthritis, unspecified site; R01.1 Cardiac murmur, unspecified; M79.604 Pain in right leg; M79.605 Pain in left leg; K57.90 Diverticulosis of intestine, part unspecified, without perforation or abscess without bleeding; E78.2 Mixed hyperlipidemia; Z79.82 Long term (current) use of aspirin; Z79.899 Other long term (current) drug therapy; Z95.1 Presence of aortocoronary bypass graft; Z87.01 Personal history of pneumonia (recurrent); Z90.49 Acquired absence of other specified parts of digestive tract; Z82.49 Family history of ischemic heart disease and other diseases of the circulatory system
CPT/HCPCS: 71045; 80048; 80053; 83036; 83735; 84100; 85025; 85027; 86850; 86891; 86900; 86901

== ENCOUNTER → 2017-09-18 | Outpatient (CLI) | payer OTHER ==
[2017-09-18 10:47] LABS: ALT 27 U/L (21-72); AST 18 U/L (17-59); Albumin 3.7 g/dL (3.5-5.0); Alkaline Phosphatase 82 U/L (38-126); Anion Gap 11 mmol/L; Blood Urea Nitrogen 15 mg/dL (9-20); Calcium 9.3 mg/dL (8.4-10.2); Carbon Dioxide 26 mmol/L (22-30); Chloride 104 mmol/L (98-107); Cholesterol 93 mg/dL (<200); Glucose 106 mg/dL (74-99); HDL Cholesterol 25 mg/dL (40-60); LDL Cholesterol,Calculated 51 mg/dL (0-99); Sodium 141 mmol/L (137-145); Total Bilirubin 0.3 mg/dL (0.2-1.3); Total Protein 6.5 g/dL (6.3-8.2); Triglycerides 85 mg/dL (<150)
[2017-09-18 11:40] LABS: PSA Annual Screen 0.91 ng/mL (0.00-4.00)
[2017-09-18 18:46] LABS: Hemoglobin A1C 6.3 % (4.0-6.0)
== END | disposition home or self-care (01) ==
LOC: LABWHC1 08:58
PROVIDERS: ATTEND Internal Medicine Interventional Cardiology
DX: I25.810 Atherosclerosis of coronary artery bypass graft(s) without angina pectoris (principal); E78.2 Mixed hyperlipidemia; E11.59 Type 2 diabetes mellitus with other circulatory complications; Z12.5 Encounter for screening for malignant neoplasm of prostate
CPT/HCPCS: 80061; 80053; 82043; 82570; 83036; 36415; G0103

== ENCOUNTER → 2018-03-22 | Outpatient (CLI) | payer MEDICARE ==
[2018-03-22 19:47] LABS: Hemoglobin A1C 6.3 % (4.0-6.0)
[2018-03-22 19:51] LABS: Albumin 4.3 g/dL (3.80-4.90); Albumin/Globulin Ratio 1.79 (1.20-2.10); Anion Gap 7.6 mmol/L (4.00-12.00); Calcium 9.6 mg/dL (8.7-10.3); Carbon Dioxide 27.4 mmol/L (21.6-31.8); Globulin 2.4 g/dL (2.1-3.7); Potassium 4.7 mmol/L (3.5-5.5); Total Bilirubin 0.3 mg/dL (0.2-1.2); Total Protein 6.7 g/dL (6.2-8.2)
== END | disposition home or self-care (01) ==
LOC: LABWHC1 09:02
PROVIDERS: ATTEND Internal Medicine Interventional Cardiology
DX: E11.59 Type 2 diabetes mellitus with other circulatory complications (principal); E78.2 Mixed hyperlipidemia; Z12.5 Encounter for screening for malignant neoplasm of prostate
CPT/HCPCS: 80061; 80053; 82043; 82570; 83036; 36415; G0103

== ENCOUNTER → 2018-09-24 | Outpatient (CLI) | payer MEDICARE ==
[2018-09-24 08:36] LABS: Basophils # (A) 0.1 k/uL (0-0.2); Basophils % (A) 1 %; Eosinophils # (A) 0.2 k/uL (0-0.7); Eosinophils % (A) 3 %; HCT 53.2 % (39.0-53.0); HGB 17.7 gm/dL (13.0-17.5); Lymphocytes # (A) 1.7 k/uL (1.0-4.8); Lymphocytes % (A) 21 %; MCH 30.3 pg (25.0-35.0); MCHC 33.2 g/dL (31.0-37.0); MCV 91.1 fL (80.0-100.0); Mean Platelet Volume 7.6; Monocytes # (A) 0.6 k/uL (0-1.0); Monocytes % (A) 8 %; Neutrophils # (A) 5.2 k/uL (1.3-7.7); Neutrophils % (A) 66 %; Platelet Count 186 k/uL (150-450); RBC 5.84 m/uL (4.30-5.90); WBC 7.9 k/uL (3.8-10.6)
[2018-09-24 18:20] LABS: African American GFR (CKD) 76.3 (60.0-200.0); Albumin 4.5 g/dL (3.80-4.90); Albumin/Globulin Ratio 1.96 (1.60-3.17); Anion Gap 6.5 mmol/L (4.00-12.00); BUN/Creat Ratio 12.5 Ratio (12.00-20.00); Calcium 9.8 mg/dL (8.7-10.3); Carbon Dioxide 32.5 mmol/L (21.6-31.8); Globulin 2.3 g/dL (1.6-3.3); Potassium 5.1 mmol/L (3.5-5.5); Total Bilirubin 0.7 mg/dL (0.2-1.2); Total Protein 6.8 g/dL (6.2-8.2)
[2018-09-24 20:17] LABS: Hemoglobin A1C 6.7 % (4.0-6.0)
== END | disposition home or self-care (01) ==
LOC: LABWHC1 08:12
PROVIDERS: ATTEND Physician Assistant
DX: E78.2 Mixed hyperlipidemia (principal); I25.810 Atherosclerosis of coronary artery bypass graft(s) without angina pectoris; E11.59 Type 2 diabetes mellitus with other circulatory complications
CPT/HCPCS: 36415; 80053; 80061; 82043; 82570; 83036; 85025

== ENCOUNTER → 2019-03-15 | Outpatient (CLI) | payer MEDICARE ==
[2019-03-15 10:16] LABS: Basophils # (A) 0.1 k/uL (0-0.2); Basophils % (A) 1 %; Eosinophils # (A) 0.2 k/uL (0-0.7); Eosinophils % (A) 2 %; HGB 16.7 gm/dL (13.0-17.5); Lymphocytes # (A) 2.1 k/uL (1.0-4.8); Lymphocytes % (A) 28 %; MCH 30.9 pg (25.0-35.0); MCHC 34.1 g/dL (31.0-37.0); MCV 90.6 fL (80.0-100.0); Monocytes # (A) 0.6 k/uL (0-1.0); Monocytes % (A) 8 %; Neutrophils # (A) 4.5 k/uL (1.3-7.7); Neutrophils % (A) 59 %; Platelet Count 179 k/uL (150-450); RBC 5.41 m/uL (4.30-5.90); RDW 13.3 % (11.5-15.5); WBC 7.7 k/uL (3.8-10.6)
[2019-03-15 15:51] LABS: African American GFR (CKD) 84.1 (60.0-200.0); Albumin/Globulin Ratio 1.82 (1.60-3.17); Anion Gap 2.7 mmol/L (4.00-12.00); BUN/Creat Ratio 14.55 Ratio (12.00-20.00); Calcium 9.1 mg/dL (8.7-10.3); Carbon Dioxide 29.3 mmol/L (21.6-31.8); Chol/HDL Ratio 3.97; Globulin 2.2 g/dL (1.6-3.3); LDL Cholesterol,Calculated 68.4 mg/dL (0.0-131.0); Non-African American GFR(CKD) 72.6 (60.0-200.0); Potassium 4.3 mmol/L (3.5-5.5); Total Bilirubin 0.4 mg/dL (0.2-1.2); Total Protein 6.2 g/dL (6.2-8.2); VLDL Calculation 20.6 mg/dL (5.00-40.00)
[2019-03-15 16:53] LABS: Hemoglobin A1C 6.5 % (4.0-6.0)
== END | disposition home or self-care (01) ==
LOC: LABWHC1 09:25
PROVIDERS: ATTEND Physician Assistant
DX: Z00.00 Encounter for general adult medical examination without abnormal findings (principal); Z12.5 Encounter for screening for malignant neoplasm of prostate; E11.59 Type 2 diabetes mellitus with other circulatory complications; E78.2 Mixed hyperlipidemia
CPT/HCPCS: 36415; 80053; 80061; 83036; 85025

== ENCOUNTER 2019-05-08 07:07 | Day surgery (SDC) | payer MEDICARE ==
[2019-05-07 12:16] VITALS: BMI 29.8
[~2019-05-08 07:07] MED LIST changes: -DEXAMETHASONE SOD PHOSPHATE 10 MG/ML 1 ML VIAL IV ONE; -HYDROmorphone 0.5 MG/0.5 ML SYRINGE IVP PRN; -MORPHINE SULFATE 4 MG/ML SYRINGE IVP PRN; -ONDANSETRON 4 MG/2 ML VIAL IVP ONE; -ceFAZolin IN SWFI 2 GM/20 ML SYRINGE IVP ONE
[2019-05-08 07:52] VITALS: RESP 16; TEMP 97.6
[2019-05-08 08:06] LABS: Glucose,Whole Blood 96 mg/dL (75-99)
[2019-05-08] MEDS ORDERED: LIDOCAINE 1% 20 ML VIAL (10MG/ML) FOR IV START INTRADERMA ONE (08:07)
[2019-05-08] MEDS ORDERED: PROPOFOL 10 MG/ML 20 ML VIAL IV ONE (08:08)
--- NOTE | 2019-05-08 08:09 | P.GSHP ---
History of Present Illness H&P Date: 05/08/19 CHIEF COMPLAINT: Colon screen HISTORY OF PRESENT ILLNESS: The patient is a 58-year-old male who presents for colon screen. Lower endoscopy was offered for further evaluation and management. PAST MEDICAL HISTORY: Please see list. PAST SURGICAL HISTORY: Please see list. MEDICATIONS: Please see list. ALLERGIES: Please see list. SOCIAL HISTORY: No illicit drug use FAMILY HISTORY: No reports of Crohn disease or ulcerative colitis. REVIEW OF ORGAN SYSTEMS: CONSTITUTIONAL: No reports of fevers or chills. PHYSICAL EXAM: VITAL SIGNS: Stable GENERAL: Well-developed pleasant in no acute distress. HEENT: No scleral icterus. Extraocular movements grossly intact. Moist buccal mucosa. NECK: Supple without lymphadenopathy. CHEST: Unlabored respirations. Equal bilateral excursions. CARDIOVASCULAR: Regular rate and rhythm. Distal 2+ pulses. ABDOMEN: Soft, nontender, nondistended. MUSCULOSKELETAL: No clubbing, cyanosis, or edema. ASSESSMENT: 1. Colon screen. PLAN: 1. Recommend proceeding with a lower endoscopy Past Medical History Past Medical History: Diabetes Mellitus, GERD/Reflux, Hyperlipidemia, Hypertension, Myocardial Infarction ([place]), Osteoarthritis ([place]) Additional Past Medical History / Comment(s): has right sided hernia, peripheral arterial disease, pneumonia 2016, heart murmur Last Myocardial Infarction Date:: 2015 History of Any Multi-Drug Resistant Organisms: None Reported Past Surgical History: Cholecystectomy, Coronary Bypass/CABG Additional Past Surgical History / Comment(s): CABG, BYPASS OF RIGHT AND LEFT LEGS, COLON POLYP REMOVED , TEETH REMOVED Past Anesthesia/Blood Transfusion Reactions: No Reported Reaction Smoking Status: Former smoker - Past Family History Mother Family Medical History: Diabetes Mellitus Father Family Medical History: Coronary Artery Disease (CAD), Diabetes Mellitus Additional Family Medical History / Comment(s): CABG Brother(s) Family Medical History: Diabetes Mellitus Medications and Allergies Home Medications Medication Instructions Recorded Confirmed Type Atorvastatin [Lipitor] 40 mg PO HS #90 tablet 09/21/15 05/08/19 Rx Carvedilol [Coreg*] 12.5 mg PO BID 09/08/16 05/08/19 History Lisinopril [Prinivil] 10 mg PO BID 09/08/16 05/08/19 History Omeprazole 40 mg PO HS 09/08/16 05/08/19 History Aspirin 81 mg PO DAILY 05/07/19 05/07/19 History metFORMIN HCL [Glucophage] 500 mg PO BID 05/07/19 05/08/19 History Allergies Allergy/AdvReac Type Severity Reaction Status Date / Time No Known Allergies Allergy Verified 05/07/19 12:32 Surgical - Exam Vital Signs Temp Pulse Resp BP Pulse Ox 97.6 F 68 16 116/68 100 05/08/19 07:47 05/08/19 07:47 05/08/19 07:47 05/08/19 07:47 05/08/19 07:47
--- NOTE | 2019-05-08 08:27 | P.PCN ---
Date of Procedure: 05/08/19 Description of Procedure: PREOPERATIVE DIAGNOSIS: Personal history of colon polyps Colonoscopy screening. POSTOPERATIVE DIAGNOSIS: Personal history of colon polyps Colonoscopy screening. Internal hemorrhoids, grade 2 Diverticulosis, scattered. OPERATION: Colonoscopy to the ileocecal valve and appendiceal orifice. SURGEON: Tessie Salvador MD. ANESTHESIA: MAC. INDICATIONS: The patient is a 58-year-old male who presents for colonoscopy screening. Benefits and risks were described and informed consent was obtained. DESCRIPTION OF PROCEDURE: The patient had undergone Gatorade, MiraLAX and Dulcolax prep. He had been brought into the operating room and laid in the left lateral decubitus position. After adequate intravenous sedation, the rectum was examined with 2% lidocaine jelly. No external hemorrhoids were encountered. The prostatic fossa was unremarkable. The rectal tone was within normal limits. No lesions were palpated in the rectal vault. An Olympus colonoscope was advanced until the ileocecal valve and appendiceal orifice were clearly viewed. The prep was fair. The scope was removed with visualization of each mucosal fold. Scattered diverticulosis was encountered. No large colonic polyps were found. No evidence of focal colitis was found. Retroflexion of the scope demonstrated grade 2 internal hemorrhoids without active bleeding or inflammation. The colon was desufflated. The patient had tolerated the procedure well. Withdrawal time was over 6 minutes. FINDINGS: Aronchick preparation quality scale 2 (1-5) Internal hemorrhoids, grade 2 Scattered diverticulosis No external prolapsed hemorrhoids. No arteriovenous malformations. No adenomatous polyps. No focal colitis. RECOMMENDATIONS: Lower endoscopy in 5 years, 2024 Plan - Discharge Summary Discharge Rx Participant: No New Discharge Prescriptions: No Action Atorvastatin [Lipitor] 40 mg PO HS #90 tablet Omeprazole 40 mg PO HS Carvedilol [Coreg*] 12.5 mg PO BID Lisinopril [Prinivil] 10 mg PO BID Aspirin 81 mg PO DAILY metFORMIN HCL [Glucophage] 500 mg PO BID Discharge Medication List Atorvastatin [Lipitor] 40 mg PO HS #90 tablet 09/21/15 [Rx] Carvedilol [Coreg*] 12.5 mg PO BID 09/08/16 [History] Lisinopril [Prinivil] 10 mg PO BID 09/08/16 [History] Omeprazole 40 mg PO HS 09/08/16 [History] Aspirin 81 mg PO DAILY 05/07/19 [History] metFORMIN HCL [Glucophage] 500 mg PO BID 05/07/19 [History] Follow up Appointment(s)/Referral(s): Tessie Salvador MD [STAFF PHYSICIAN] - As Needed Patient Instructions/Handouts: Diverticulosis (ED), Diverticulosis Diet (GEN), Hemorrhoids (DC) Activity/Diet/Wound Care/Special Instructions: Repeat colonoscopy 5 years, 2024 Discharge Disposition: HOME SELF-CARE
[2019-05-08 08:54] VITALS: BP 112/72; PULSE 49
== END 2019-05-08 09:22 | disposition home or self-care (01) ==
LOC: ORWHC2ENDO 07:07 → MERGE 07:30 → ORWHC2ENDO 09:22
PROVIDERS: ATTEND Surgery Plastic and Reconstructive Surgery
DX: Z12.11 Encounter for screening for malignant neoplasm of colon (principal); K57.30 Diverticulosis of large intestine without perforation or abscess without bleeding; K64.1 Second degree hemorrhoids; Z86.010 Personal history of colon polyps; I10 Essential (primary) hypertension; E11.51 Type 2 diabetes mellitus with diabetic peripheral angiopathy without gangrene; E78.5 Hyperlipidemia, unspecified; I25.2 Old myocardial infarction; K21.9 Gastro-esophageal reflux disease without esophagitis; M19.90 Unspecified osteoarthritis, unspecified site; R01.1 Cardiac murmur, unspecified; K46.9 Unspecified abdominal hernia without obstruction or gangrene; I25.10 Atherosclerotic heart disease of native coronary artery without angina pectoris; Z95.1 Presence of aortocoronary bypass graft; Z79.899 Other long term (current) drug therapy; Z79.82 Long term (current) use of aspirin; Z79.84 Long term (current) use of oral hypoglycemic drugs; Z87.01 Personal history of pneumonia (recurrent); Z90.49 Acquired absence of other specified parts of digestive tract; Z87.891 Personal history of nicotine dependence; Z83.3 Family history of diabetes mellitus; Z82.49 Family history of ischemic heart disease and other diseases of the circulatory system; Z98.890 Other specified postprocedural states
CPT/HCPCS: J2704; G0121

== ENCOUNTER → 2019-10-01 | Outpatient (CLI) | payer MEDICARE ==
[2019-10-01 09:55] LABS: Basophils % (A) 1 %; Eosinophils # (A) 0.2 k/uL (0-0.7); Eosinophils % (A) 3 %; HCT 53.6 % (39.0-53.0); HGB 17.7 gm/dL (13.0-17.5); Lymphocytes # (A) 1.6 k/uL (1.0-4.8); Lymphocytes % (A) 25 %; MCH 30.6 pg (25.0-35.0); MCV 92.9 fL (80.0-100.0); Mean Platelet Volume 8.2; Monocytes # (A) 0.6 k/uL (0-1.0); Monocytes % (A) 9 %; Neutrophils % (A) 62 %; Platelet Count 169 k/uL (150-450); RBC 5.77 m/uL (4.30-5.90); RDW 13.1 % (11.5-15.5); WBC 6.5 k/uL (3.8-10.6)
[2019-10-01 16:41] LABS: African American GFR (CKD) 75.7 (60.0-200.0); Albumin 4.4 g/dL (3.80-4.90); Albumin/Globulin Ratio 1.83 (1.60-3.17); Anion Gap 5.3 mmol/L (4.00-12.00); Calcium 9.6 mg/dL (8.7-10.3); Carbon Dioxide 31.7 mmol/L (21.6-31.8); Chol/HDL Ratio 3.72; Globulin 2.4 g/dL (1.6-3.3); LDL Cholesterol,Calculated 72.8 mg/dL (0.0-131.0); Non-African American GFR(CKD) 65.3 (60.0-200.0); Potassium 4.3 mmol/L (3.5-5.5); Total Bilirubin 0.6 mg/dL (0.2-1.2); Total Protein 6.8 g/dL (6.2-8.2); VLDL Calculation 14.2 mg/dL (5.00-40.00)
[2019-10-01 17:10] LABS: Hemoglobin A1C 6.7 % (4.0-6.0)
[2019-10-01 17:36] LABS: Urine Creatinine 52.8 mg/dL
== END | disposition home or self-care (01) ==
LOC: LABWHC1 08:24
PROVIDERS: ATTEND Physician Assistant
DX: E11.59 Type 2 diabetes mellitus with other circulatory complications (principal); E78.2 Mixed hyperlipidemia; I25.810 Atherosclerosis of coronary artery bypass graft(s) without angina pectoris
CPT/HCPCS: 80061; 80053; 85025; 82043; 82570; 83036; 36415; G0103

== ENCOUNTER → 2020-06-11 | Outpatient (CLI) | payer MEDICARE ==
[2020-06-12 01:03] LABS: African American GFR (CKD) 62.4 (60.0-200.0); Albumin 4.3 g/dL (3.80-4.90); Albumin/Globulin Ratio 1.26 (1.60-3.17); Anion Gap 10.6 mmol/L (4.00-12.00); BUN/Creat Ratio 13.57 Ratio (12.00-20.00); Calcium 10.4 mg/dL (8.7-10.3); Carbon Dioxide 28.4 mmol/L (21.6-31.8); Chol/HDL Ratio 3.86; Globulin 3.4 g/dL (1.6-3.3); LDL Cholesterol,Calculated 59.2 mg/dL (0.0-131.0); Non-African American GFR(CKD) 53.8 (60.0-200.0); Potassium 4.7 mmol/L (3.5-5.5); Total Bilirubin 0.8 mg/dL (0.3-1.2); Total Protein 7.7 g/dL (6.2-8.2); VLDL Calculation 23.8 mg/dL (5.00-40.00)
== END | disposition home or self-care (01) ==
LOC: LABWHC1 13:40
PROVIDERS: ATTEND Internal Medicine Interventional Cardiology
DX: E78.2 Mixed hyperlipidemia (principal)
CPT/HCPCS: 36415; 80053; 80061

== ENCOUNTER → 2020-10-06 | Outpatient (CLI) | payer MEDICARE ==
[2020-10-06 16:05] LABS: Basophils # (A) 0.04 X 10*3/uL (0.00-0.10); Basophils % (A) 0.5 %; Eosinophils # (A) 0.18 X 10*3/uL (0.04-0.35); Eosinophils % (A) 2.4 %; HCT 51.1 % (39.6-50.0); HGB 17.3 g/dL (13.0-17.0); Lymphocytes # (A) 1.69 X 10*3/uL (0.90-5.00); Lymphocytes % (A) 22.4 %; MCHC 33.9 g/dL (32.0-37.0); MCV 91.6 fL (80.0-97.0); Mean Platelet Volume 11.2 fL (9.5-12.2); Monocytes # (A) 0.76 X 10*3/uL (0.20-1.00); Monocytes % (A) 10.1 %; Neutrophils # (A) 4.86 X 10*3/uL (1.80-7.70); Neutrophils % (A) 64.3 %; Platelet Count 188 X 10*3/uL (140-440); RBC 5.58 X 10*6/uL (4.40-5.60); RDW 13.7 % (11.5-14.5); WBC 7.55 X 10*3/uL (4.50-10.00)
[2020-10-06 18:58] LABS: African American GFR (CKD) 74.7 (60.0-200.0); Albumin 4.3 g/dL (3.80-4.90); Albumin/Globulin Ratio 1.54 (1.60-3.17); Anion Gap 6.4 mmol/L (4.00-12.00); BUN/Creat Ratio 15.83 Ratio (12.00-20.00); Calcium 9.4 mg/dL (8.7-10.3); Carbon Dioxide 28.6 mmol/L (21.6-31.8); Chol/HDL Ratio 3.97; Globulin 2.8 g/dL (1.6-3.3); Non-African American GFR(CKD) 64.4 (60.0-200.0); Potassium 5.1 mmol/L (3.5-5.5); Total Bilirubin 0.6 mg/dL (0.2-1.2); Total Protein 7.1 g/dL (6.2-8.2)
[2020-10-06 19:07] LABS: PSA Annual Screen 0.9 ng/mL (0.0-4.0)
[2020-10-06 22:01] LABS: Urine Creatinine 75.1 mg/dL
== END | disposition home or self-care (01) ==
LOC: LABWHC1 08:39
PROVIDERS: ATTEND Physician Assistant
DX: Z12.5 Encounter for screening for malignant neoplasm of prostate (principal); I51.9 Heart disease, unspecified; E11.59 Type 2 diabetes mellitus with other circulatory complications; E78.2 Mixed hyperlipidemia
CPT/HCPCS: 80061; 80053; 85025; 82043; 82570; 83036; 36415; G0103